=== PATIENT | male | born 1960 | race African-American/Black ===

== ENCOUNTER 2016-12-28 13:50 | Emergency (ER) | payer OTHER ==
[2016-12-28 13:58] VITALS: BP 121/63; PULSE 60; RESP 20; TEMP 97.3
--- NOTE | 2016-12-28 14:54 | ED ---
General Adult HPI - General Chief complaint: Urogenital Stated complaint: Testicular Pain Time Seen by Provider: 12/28/16 14:00 Source: patient, RN notes reviewed Mode of arrival: ambulatory Limitations: no limitations - History of Present Illness Initial comments: 56-year-old male presents emergency department chief complaint of right testicular pain. Patient states she's had this pain and swelling for the last 2 or 3 days. Patient states that he has not had any changes in urination. Patient denies any fever chills. Patient denies any changes in bowel or bladder habits. Patient states she was concerned due to his pain and discomforts without that he should be evaluated. Patient states he is not currently experiencing any other symptoms at this time. Patient denies any fever chills with this.Patient denies any recent fever, chills, shortness of breath, chest pain, back pain, abdominal pain, nausea vomiting, numbness or tingling, dysuria or hematuria, constipation or diarrhea, headaches or visual changes, or any other current symptoms. - Related Data Previous Rx's Medication Instructions Recorded Acetaminophen Tab [Tylenol Tab] 500 mg PO Q4H #30 tablet 03/05/16 Cephalexin [Keflex] 500 mg PO Q6HR #40 cap 03/05/16 Levofloxacin [Levaquin] 500 mg PO DAILY #7 tab 12/28/16 Allergies Allergy/AdvReac Type Severity Reaction Status Date / Time ibuprofen [From Motrin] Allergy Nausea & Verified 03/05/16 15:20 Vomiting Review of Systems ROS Statement: Those systems with pertinent positive or pertinent negative responses have been documented in the HPI. ROS Other: All systems not noted in ROS Statement are negative. Past Medical History Past Medical History: Chest Pain / Angina, Musculoskeletal Disorder Additional Past Medical History / Comment(s): back pain History of Any Multi-Drug Resistant Organisms: None Reported Past Surgical History: Orthopedic Surgery Additional Past Surgical History / Comment(s): L arm Past Anesthesia/Blood Transfusion Reactions: No Reported Reaction Past Psychological History: Depression Smoking Status: Current every day smoker Past Alcohol Use History: None Reported, Abuse Past Drug Use History: None Reported General Exam Limitations: no limitations General appearance: alert, in no apparent distress ENT exam: Present: normal exam, mucous membranes moist Neck exam: Present: normal inspection. Absent: tenderness, meningismus, lymphadenopathy Respiratory exam: Present: normal lung sounds bilaterally. Absent: respiratory distress, wheezes, rales, rhonchi, stridor Cardiovascular Exam: Present: regular rate, normal rhythm, normal heart sounds. Absent: systolic murmur, diastolic murmur, rubs, gallop, clicks exam: Present: testicular tenderness (Right testicle), scrotal swelling ( Right testicle), vertical testicular lie. Absent: urethral discharge Neurological exam: Present: alert, oriented X3 Psychiatric exam: Present: normal affect, normal mood Skin exam: Present: warm, dry, intact, normal color. Absent: rash Course Vital Signs 12/28/16 13:54 Temperature 97.3 F L Pulse Rate 60 Respiratory 20 Rate Blood Pressure 121/63 O2 Sat by Pulse 100 Oximetry Medical Decision Making - Medical Decision Making 56-year-old male presents emergency Department chief complaint of right testicular pain. At this time ultrasound shows suspicion for epididymitis. He treat patient with Levaquin at this time. We are pending STD cultures we discussed with the patient he denies any wrist. At this time QUESTIONS have been answered. He will be discharged home. - Lab Data Lab Results 12/28/16 Range/Units 15:16 Urine Color Yellow Urine Appearance Clear (Clear) Urine pH 7.0 (5.0-8.0) Ur Specific [place] 1.016 (1.001-1.035) Urine Protein Negative (Negative) Urine Glucose (UA) Negative (Negative) Urine Ketones Negative (Negative) Urine Blood Negative (Negative) Urine Nitrite Negative (Negative) Urine Bilirubin Negative (Negative) Urine Urobilinogen <2.0 (<2.0) mg/dL Ur Leukocyte Esterase Small H (Negative) Urine RBC 1 (0-5) /hpf Urine WBC 10 H (0-5) /hpf Ur Squamous Epith Cells <1 (0-4) /hpf Urine Bacteria Occasional H (None) /hpf Urine Mucus Rare H (None) /hpf - Radiology Data Radiology results: report reviewed, image reviewed Disposition Clinical Impression: Epididymitis Disposition: HOME SELF-CARE Condition: Stable Instructions: Epididymitis (ED) Additional Instructions: Please use medication as discussed. Please follow up with family doctor if symptoms have not improved over the next two days. Please return to the emergency room if your symptoms increase or worsen or for any other concerns. Prescriptions: Levofloxacin [Levaquin] 500 mg PO DAILY #7 tab Referrals: Caty Waldrop MD [Primary Care Provider] - 1-2 days Gigi Chandler MD [STAFF PHYSICIAN] - 1-2 days Time of Disposition: 15:38
--- NOTE | 2016-12-28 15:07 | US ---
EXAMINATION TYPE: US scrotum with doppler. Grayscale and color Doppler Duplex imaging performed of alcides metzger scrotum. DATE OF EXAM: 12/28/2016 COMPARISON: NONE CLINICAL HISTORY: Pain. Right testicle swelling EXAM MEASUREMENTS: TESTICLES: Right Testicle: 4.3 x 2.0 x 3.0 cm Left Testicle: 3.8 x 2.0 x 2.6 cm EPIDIDYMIS HEAD: Right Epididymis: 1.8 cm Left Epididymis: 1.0 cm Doppler performed to assess for testicular vascularity; good bilateral color flow and waveforms are s een. There is no evidence of testicular torsion. Presence of hydroceles: on right measuring 2.3 x 1.3 x 1.7cm Presence of varicoceles: no Small bilateral testicular cysts right measuring 0.3 x 0.2x 0.2cm, left measuring 0.2 x 0.2 x 0.2cm . Excessive echogenic foci suggestive of microcalcifications seen bilaterally. Right epididymis appears enlarged and hypervascular suggestive of epididymitis. IMPRESSION: Findings suggest epididymitis. Testicular microlithiasis. Bilateral testicular cysts are suspected. No evident testicular torsion. Follow-up suggested.
[2016-12-28 15:38] LABS: Appearance,Urine Clear (Clear); Bacteria,Urine Occasional /hpf; Bilirubin,Urine Negative (Negative); Glucose,Urine (UA) Negative (Negative); Ketones,Urine Negative (Negative); Leukocyte Esterase,Urine Small (Negative); Mucus,Urine Rare /hpf; Nitrite,Urine Negative (Negative); Particle Count 697; Protein,Urine Negative (Negative); RBC,Urine 1 /hpf (0-5); Specific Gravity,Urine 1.016 (1.001-1.035); Squamous Epithelial Cell,Urine <1 /hpf (0-4); UA Billing (MACRO vs. MICRO) MICRO; Urobilinogen,Urine <2.0 mg/dL (<2.0); WBC,Urine 10 /hpf (0-5)
[2016-12-28] MEDS ORDERED: ACETAMINOPHEN TAB 500 MG TAB PO STA (15:45)
== END 2016-12-28 15:55 | disposition home or self-care (01) ==
LOC: EC 13:50
DX: N45.1 Epididymitis (principal); F17.200 Nicotine dependence, unspecified, uncomplicated; Z88.6 Allergy status to analgesic agent
CPT/HCPCS: 76870; 81001; 87086; 87491; 87591; 93975; 99284

== ENCOUNTER 2017-06-03 15:11 | Emergency (ER) | payer OTHER ==
[2017-06-03 15:17] VITALS: BP 134/68; PULSE 66; RESP 16; TEMP 97.8
[2017-06-03] MEDS ORDERED: DIPH,PERTUS(ACELL)TETVAC-LF 0.5 ML VIAL IM ONE (15:35)
[2017-06-03] MEDS ORDERED: CIPROFLOXACIN HCL 500 MG TAB PO STA (15:36)
[2017-06-03] MEDS ORDERED: ACETAMINOPHEN TAB 500 MG TAB PO STA (15:42)
--- NOTE | 2017-06-03 15:50 | ED ---
Lower Extremity Injury HPI - General Chief Complaint: Extremity Injury, Lower Stated Complaint: Stepped on nail Time Seen by Provider: 06/03/17 15:32 Source: patient Mode of arrival: ambulatory Limitations: no limitations - History of Present Illness Initial Comments: Patient is a 56-year-old male presenting to the emergency department with chief complaint of puncture wound to the plantar aspect of his left forefoot. Patient states he was walking and stepped on a nail at approximately 3 PM yesterday. Patient states she applied rubbing alcohol to the wound right after the injury. Patient is currently complaining of a dull pain to his left foot rated 6 out of 10 exacerbated when walking. No treatment prior to arrival. Patient denies recent illness, chills, fevers, nausea, vomiting, shortness of breath, chest pain, abdominal pain. Patient denies any numbness or tingling. 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 - Related Data Previous Rx's Medication Instructions Recorded Acetaminophen Tab [Tylenol Tab] 500 mg PO Q4H #30 tablet 03/05/16 Cephalexin [Keflex] 500 mg PO Q6HR #40 cap 03/05/16 Levofloxacin [Levaquin] 500 mg PO DAILY #7 tab 12/28/16 Ciprofloxacin HCl [Cipro] 500 mg PO Q12HR #19 tablet 06/03/17 Allergies Allergy/AdvReac Type Severity Reaction Status Date / Time ibuprofen [From Motrin] Allergy Nausea & Verified 06/03/17 15:17 Vomiting Review of Systems ROS Statement: Those systems with pertinent positive or pertinent negative responses have been documented in the HPI. ROS Other: All systems not noted in ROS Statement are negative. Past Medical History Past Medical History: Chest Pain / Angina, Musculoskeletal Disorder Additional Past Medical History / Comment(s): back pain History of Any Multi-Drug Resistant Organisms: None Reported Past Surgical History: Orthopedic Surgery Additional Past Surgical History / Comment(s): L arm Past Anesthesia/Blood Transfusion Reactions: No Reported Reaction Past Psychological History: Depression Smoking Status: Current every day smoker Past Alcohol Use History: None Reported, Abuse Past Drug Use History: None Reported General Exam - General Exam Comments Initial Comments: GENERAL: Pt awake and alert, well-appearing, well-nourished, and in no acute distress. HEAD: Atraumatic, normocephalic. EYES: Pupils equal, round, sclera anicteric, conjunctiva are normal. ENT: Moist mucous membranes. NECK:Normal range of motion, supple without lymphadenopathy or JVD. LUNGS: Breath sounds clear to auscultation bilaterally. No wheezes, rales, or rhonchi. HEART: Heart S1, S2, no S3 or S4. Regular rate and rhythm. No murmurs, rubs or gallops. ABDOMEN: Soft, nontender, nondistended, normoactive bowel sounds. No guarding, no rebound. No masses or organomegaly appreciated. MUSCULOSKELETAL: Normal ROM. Strength 5/5. EXTREMITIES: 2+ peripheral pulses. No edema or cyanosis. Tenderness to left plantar forefoot with palpation. No obvious erythema or drainage noted. NEUROLOGICAL: Pt oriented x 3. Cranial nerves II through XII grossly intact. Strength and sensation grossly intact. PSYCH: Normal mood, normal affect. SKIN: Warm, dry, intact. Normal turgor. No rashes or lesions. Limitations: no limitations Course Vital Signs 06/03/17 15:12 Temperature 97.8 F Pulse Rate 66 Respiratory 16 Rate Blood Pressure 134/68 O2 Sat by Pulse 98 Oximetry Medical Decision Making - Medical Decision Making Puncture wound to left foot. No evidence of cellulitis. Left foot x-ray negative for fracture dislocation or foreign body. Patient placed on Cipro 500 mg twice a day 10 days. Patient instructed to soak left foot in warm water 3- 4 times daily. Patient started to follow-up with primary care physician or return to the emergency department if symptoms do not improve or get worse. Patient agrees with treatment plan. Discharge instructions and return parameters reviewed. - Radiology Data Radiology results: report reviewed X-ray left foot: No fracture or dislocation. Metatarsals are intact. No sign or foreign body. As read by Dr. Hare. Disposition Clinical Impression: Puncture wound of foot without foreign body Disposition: HOME SELF-CARE Condition: Good Instructions: Puncture Wound (ED) Additional Instructions: Finish antibiotics as prescribed. Avoid weightbearing while painful. Elevate and soak wound in warm water. Follow-up with primary care physician within 48 hours. Continue Tylenol for pain every 4-6 hours as needed. Please return to the emergency department with increased cellulitis or red streaks going up your foot and leg, increased pain, fevers or any other concerning symptoms. Prescriptions: Ciprofloxacin HCl [Cipro] 500 mg PO Q12HR #19 tablet Referrals: Caty Waldrop MD [Primary Care Provider] - 1-2 days Time of Disposition: 16:00
--- NOTE | 2017-06-03 15:50 | XR ---
EXAMINATION TYPE: XR foot complete LT DATE OF EXAM: 06/03/2017 COMPARISON: NONE HISTORY: Pain TECHNIQUE: 3 views FINDINGS: I see no fracture nor dislocation. Metatarsals are intact. There is no sign of a foreign daylin dy. IMPRESSION: Negative left foot exam.
== END 2017-06-03 16:07 | disposition home or self-care (01) ==
LOC: EC 15:11
DX: S91.332A Puncture wound without foreign body, left foot, initial encounter (principal); F17.200 Nicotine dependence, unspecified, uncomplicated; Z88.6 Allergy status to analgesic agent; Z23 Encounter for immunization; W45.0XXA Nail entering through skin, initial encounter; Y93.01 Activity, walking, marching and hiking; Y92.89 Other specified places as the place of occurrence of the external cause
CPT/HCPCS: 90471; 90715; 99283

== ENCOUNTER 2019-02-16 13:45 | Emergency (ER) | payer OTHER ==
[2019-02-16] MEDS ORDERED: DIPH,PERTUS(ACELL)TETVAC-LF 0.5 ML VIAL IM ONE (14:31)
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
[2019-02-16 15:30] VITALS: BP 127/78; PULSE 49; RESP 18; TEMP 97.7
== END 2019-02-16 15:29 | disposition home or self-care (01) ==
LOC: EC 13:45
DX: S40.212A Abrasion of left shoulder, initial encounter (principal); Z23 Encounter for immunization; F17.200 Nicotine dependence, unspecified, uncomplicated; Z88.6 Allergy status to analgesic agent; Y04.0XXA Assault by unarmed brawl or fight, initial encounter
CPT/HCPCS: 90471; 90715; 99283

== ENCOUNTER 2019-04-11 06:14 | Emergency (ER) | payer OTHER ==
[2019-04-11 06:30] VITALS: RESP 18; TEMP 97.7
[2019-04-11] MEDS ORDERED: HYDROcodone/APAP 5-325MG 1 EACH TAB PO STA (06:52)
[2019-04-11] MEDS ORDERED: KETOROLAC 30 MG/ML 1 ML VIAL IM STA (06:52)
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
--- NOTE | 2019-04-11 07:13 | XR ---
EXAMINATION TYPE: XR wrist complete RT DATE OF EXAM: 04/11/2019 CLINICAL HISTORY: pain TECHNIQUE: Frontal, lateral and oblique images of the right wrist are obtained. Scaphoid views also submitted. COMPARISON: None. FINDINGS: There is no acute fracture/dislocation evident. There is widening of the scapholunate space measuring 6. 5 mm felt to reflect scapholunate ligamentous tear. Severe narrowing radiocarpal joint space. IMPRESSION: There is no acute fracture or dislocation seen. Suspect scapholunate ligamentous tear. ICD 10 NO FRACTURE, INITIAL EVALUATION
--- NOTE | 2019-04-11 07:14 | XR ---
EXAMINATION TYPE: XR tibia fibula RT DATE OF EXAM: 04/11/2019 CLINICAL HISTORY: pain TECHNIQUE: AP and lateral images of the right tibia and fibula are obtained. COMPARISON: None. FINDINGS: There is no acute fracture/dislocation evident. The joint spaces appear within normal fletcher its. The overlying soft tissue appears unremarkable. IMPRESSION: There is no acute fracture or dislocation seen. ICD 10 NO FRACTURE, INITIAL EVALUATION
[2019-04-11 08:09] VITALS: BP 120/72; PULSE 45
== END 2019-04-11 08:03 | disposition home or self-care (01) ==
LOC: EC 06:14
DX: S63.8X1A Sprain of other part of right wrist and hand, initial encounter (principal); S50.312A Abrasion of left elbow, initial encounter; S80.812A Abrasion, left lower leg, initial encounter; F17.200 Nicotine dependence, unspecified, uncomplicated; Z88.6 Allergy status to analgesic agent; Z98.890 Other specified postprocedural states; V13.4XXA Pedal cycle driver injured in collision with car, pick-up truck or van in traffic accident, initial encounter; Y93.55 Activity, bike riding; Y92.410 Unspecified street and highway as the place of occurrence of the external cause
CPT/HCPCS: 73110; 73590; 99284; 29125; 96372; J1885

== ENCOUNTER → 2019-04-12 | Outpatient (CLI) | payer OTHER ==
--- NOTE | 2019-04-12 14:21 | XR ---
Chest x-ray with left RIBS HISTORY: Trauma and pain Frontal view the chest and 4 views of the left ribs submitted and compared to prior chest x-ray dated 04/13/2013 There is no pneumothorax or pleural effusion. Cardiac mediastinal silhouette, pulmonary vascularity a nd blas within normal limits. Aorta is dense. Pulmonary vascularity and blas are stable. No displaced rib fracture. IMPRESSION: No acute cardiopulmonary disease. Bone scan could be performed for increased sensitivity to assess for x-ray as indicated.
--- NOTE | 2019-04-12 14:21 | US ---
EXAMINATION TYPE: US venous doppler duplex LE RT DATE OF EXAM: 04/12/2019 1:50 PM COMPARISON: NONE CLINICAL HISTORY: M79.602 Pain in R leg, Z91.81 Status post fall. SIDE PERFORMED: Right TECHNIQUE: The lower extremity deep venous system is examined utilizing real time linear array sonog tiffani with graded compression, doppler sonography and color-flow sonography. VESSELS IMAGED: Common Femoral Vein Deep Femoral Vein Greater Saphenous Vein * Femoral Vein Popliteal Vein Small Saphenous Vein * Proximal Calf Veins (* superficial vessels) Right Leg: Negative for DVT. Right groin lymph node is seen = 2.4 x 1.6 x 0.7cm. IMPRESSION: 1. Right lower extremity negative for deep venous thrombosis. 2. Right inguinal lymph node
--- NOTE | 2019-04-12 14:23 | XR ---
Lumbosacral spine HISTORY: Trauma and pain 5 views of lumbosacral spine correlated to prior exam 05/18/2011 Lumbar vertebral bodies show preserved height, alignment, and bone mineralization. There is no eviden t spondylolysis or spondylolisthesis. Sclerosis present in the posterior elements is compatible with facet arthropathy. There is multilevel spondylosis. Loss of disc height at intervertebral levels is c ompatible with disc desiccation and degenerative disc disease. IMPRESSION: No acute fracture or subluxation. Degenerative disc disease and facet arthropathy. Follow -up as indicated.
== END | disposition home or self-care (01) ==
LOC: RADUSWWP 13:13
PROVIDERS: ATTEND Family Medicine
DX: M79.604 Pain in right leg (principal); R07.81 Pleurodynia; M51.36 Other intervertebral disc degeneration, lumbar region; M46.96 Unspecified inflammatory spondylopathy, lumbar region; Z91.81 History of falling
CPT/HCPCS: 72110

== ENCOUNTER 2019-04-22 09:51 | Emergency (ER) | payer OTHER ==
[2019-04-22 10:03] VITALS: BP 117/73; PULSE 46; RESP 20; TEMP 97.4
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
[2019-04-22] MEDS ORDERED: ORPHENADRINE 30 MG/ML 2 ML VIAL IM STA (11:11)
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
== END 2019-04-22 11:56 | disposition home or self-care (01) ==
LOC: EC 09:51
DX: M62.838 Other muscle spasm (principal); M50.322 Other cervical disc degeneration at C5-C6 level; R51 Headache; M48.02 Spinal stenosis, cervical region; I20.9 Angina pectoris, unspecified; F17.200 Nicotine dependence, unspecified, uncomplicated; Z98.890 Other specified postprocedural states; Z88.6 Allergy status to analgesic agent; V13.4XXD Pedal cycle driver injured in collision with car, pick-up truck or van in traffic accident, subsequent encounter
CPT/HCPCS: 72125; 70450; 99284; 96372; J2360

== ENCOUNTER → 2019-04-24 | Outpatient (CLI) | payer OTHER ==
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
== END | disposition home or self-care (01) ==
LOC: RADXRMAIN 15:39
PROVIDERS: ATTEND Family Medicine
DX: S62.101A Fracture of unspecified carpal bone, right wrist, initial encounter for closed fracture (principal); M89.8X8 Other specified disorders of bone, other site; M77.8 Other enthesopathies, not elsewhere classified; X58.XXXA Exposure to other specified factors, initial encounter

== ENCOUNTER → 2019-05-08 | Outpatient (CLI) | payer OTHER ==
--- NOTE | 2019-05-08 09:43 | MR ---
EXAMINATION TYPE: MR lumbar spine wo con DATE OF EXAM: 05/08/2019 COMPARISON: Plain film 04/12/2019 HISTORY: Lumbago with sciatica, bilateral TECHNIQUE: Multiplanar, multisequence images of the lumbar spine were acquired. L1-L2: Posterior broad-based disc bulge causes minimal anterior mass effect on the thecal sac. No sig nificant foraminal encroachment or central stenosis. L2-L3: No central stenosis or foraminal encroachment. No evident disc herniation. L3-L4: Facet arthropathy is present. There is hypertrophy ligamentum flavum. No evident spinal stenos is. Circumferential extension of endplate disc complex causes some mild left-sided foraminal encroach ment. No disc herniation. L4-L5: Posterior broad-based disc bulge causes slight anterior mass effect on the thecal sac. There i s facet arthropathy change. No central stenosis or foraminal encroachment. L5-S1: Minimal posterior disc bulge contacts the anterior mass effect on the thecal sac. No significa nt central stenosis. No foraminal encroachment. Increased signal at the posterior aspect of the disc is likely procurement representative of annular tear. There is facet arthropathy change. Lumbar segments are intact. No paraspinal masses are identified. Conus medullaris has a normal appe arance. There is mild spinal curvature. Suspect possible marrow reconversion, correlate for anemia. M ultilevel spondylosis with endplate discogenic marrow signal change is noted. Lumbar vertebral bodies show preserved height. Some loss of disc signal is compatible with disc desiccation, there is associ ated loss of disc height greatest at L1-2. Multiple T2 intense foci within the kidneys likely represe nting cortical cysts. IMPRESSION: Degenerative disc disease, facet arthropathy, mild spinal curvature. Correlate for possible anemia.
== END | disposition home or self-care (01) ==
LOC: RADMRIMAIN 08:13
PROVIDERS: ATTEND Nurse Practitioner Family
DX: M51.36 Other intervertebral disc degeneration, lumbar region (principal); M46.96 Unspecified inflammatory spondylopathy, lumbar region; M43.9 Deforming dorsopathy, unspecified
CPT/HCPCS: 72148

== ENCOUNTER → 2019-06-01 | Outpatient (CLI) | payer OTHER ==
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
== END | disposition home or self-care (01) ==
LOC: RADMRIMAIN 13:51
PROVIDERS: ATTEND Internal Medicine Geriatric Medicine
DX: M50.122 Cervical disc disorder at C5-C6 level with radiculopathy (principal); M50.223 Other cervical disc displacement at C6-C7 level; V19 Pedal cycle rider injured in other and unspecified transport accidents
CPT/HCPCS: 72141

== ENCOUNTER 2019-12-23 09:08 | Emergency (ER) | payer OTHER ==
[2019-12-23 09:16] VITALS: PULSE 53; RESP 18
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
[2019-12-23 09:34] VITALS: BP 124/78; TEMP 98.3
--- NOTE | 2019-12-23 09:51 | XR ---
EXAMINATION TYPE: XR ribs RT w pa chest xray DATE OF EXAM: 12/23/2019 COMPARISON: NONE TECHNIQUE: PA view of the chest and 4 views of the right ribs are submitted submitted. HISTORY: pain FINDINGS: The lungs are clear and there is no pneumothorax, pleural effusion, or focal pneumonia. There is a subtle deformity involving the posterior lateral right ninth rib. IMPRESSION: 1. Subtle deformity involving the posterior lateral right ninth rib. This could be chronic correlate with point tenderness to exclude hairline nondisplaced fracture.
[2019-12-23] MEDS ORDERED: LIDOCAINE 5% PATCH TOPICAL STA (10:28)
[2019-12-23] MEDS ORDERED: valACYclovir 500 MG TAB PO STA (11:46)
[2019-12-23] MEDS ORDERED: valACYclovir HCL 1,000 MG TABLET PO STA ×2 (11:49→12:09)
[2019-12-23] MEDS ORDERED: ACET/COD 300 MG/30 MG STARTER PACK 6 TAB BTL PO STA (11:59)
== END 2019-12-23 12:16 | disposition home or self-care (01) ==
LOC: EC 09:08
DX: S22.31XA Fracture of one rib, right side, initial encounter for closed fracture (principal); B02.9 Zoster without complications; S01.511A Laceration without foreign body of lip, initial encounter; F17.200 Nicotine dependence, unspecified, uncomplicated; Z88.6 Allergy status to analgesic agent; W50.0XXA Accidental hit or strike by another person, initial encounter
CPT/HCPCS: 99284

== ENCOUNTER 2020-07-06 12:07 | Emergency (ER) | payer OTHER ==
[2020-07-06 12:22] VITALS: RESP 18
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
[2020-07-06 13:35] VITALS: BP 120/71; PULSE 58; TEMP 97.9
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
[2020-07-06] MEDS ORDERED: ASPIRIN-ACET-CAFF 250-250-65MG 1 EACH TAB PO STA (13:44)
== END 2020-07-06 14:00 | disposition home or self-care (01) ==
LOC: EC 12:07
DX: S09.90XA Unspecified injury of head, initial encounter (principal); R51.9 Headache, unspecified; Z88.6 Allergy status to analgesic agent; V89.0XXA Person injured in unspecified motor-vehicle accident, nontraffic, initial encounter; Y92.410 Unspecified street and highway as the place of occurrence of the external cause
CPT/HCPCS: 70450; 72125; 99284

== ENCOUNTER 2021-07-01 00:35 | Emergency (ER) | payer OTHER ==
[2021-07-01 00:50] VITALS: RESP 16
[2021-07-01] MEDS ORDERED: CALCIUM CHLORIDE 100 MG/ML 10 ML SYRINGE IVP STA (00:50)
[2021-07-01] MEDS ORDERED: SODIUM CHLORIDE 0.9% 1,000 ML IV STA (00:50)
--- NOTE | 2021-07-01 00:57 | ED ---
Arrhythmia/Palpitations HPI - General Chief Complaint: Arrhythmia/Palpitations Stated Complaint: Syncope Time Seen by Provider: 07/01/21 00:38 Source: patient, police, EMS, RN notes reviewed, old records reviewed Mode of arrival: EMS Limitations: no limitations - History of Present Illness Initial Comments: This is a 60-year-old male to the emergency room today. Patient presents today patient does reiterate that he has always had a little heart rate is unable to get about 60 for evaluation regards to sinus bradycardia significant bradycardia here in the emergency department. Patient also had a severe syncopal event recently placed on psychiatric medication. MD Complaint: "skipped beats", palpitations -: hour(s) Context: occurred during rest Arrhythmia History: other (bradycardia) Associated Symptoms: syncope Treatments Prior to Arrival: other (none, new antipsychotic medications) - Related Data Previous Rx's Medication Instructions Recorded valACYclovir HCL [Valacyclovir] 1,000 mg PO Q8HR 7 Days #21 tab 12/23/19 Allergies Allergy/AdvReac Type Severity Reaction Status Date / Time ibuprofen [From Motrin] Allergy Nausea & Verified 07/06/20 12:21 Vomiting Review of Systems ROS Statement: Those systems with pertinent positive or pertinent negative responses have been documented in the HPI. ROS Other: All systems not noted in ROS Statement are negative. Past Medical History Past Medical History: Chest Pain / Angina, Musculoskeletal Disorder Additional Past Medical History / Comment(s): back pain History of Any Multi-Drug Resistant Organisms: MRSA Date of last positivie culture/infection: 2019 MDRO Source:: flank Past Surgical History: Orthopedic Surgery Additional Past Surgical History / Comment(s): L arm, right hand Past Anesthesia/Blood Transfusion Reactions: No Reported Reaction Past Psychological History: Depression Smoking Status: Current every day smoker Past Alcohol Use History: Abuse, Occasional Past Drug Use History: Cocaine General Exam Limitations: no limitations Course Vital Signs 07/01/21 07/01/21 07/01/21 00:38 00:58 01:37 Temperature 97.0 F L Pulse Rate 38 L 53 L 45 L Respiratory 16 16 16 Rate Blood Pressure 128/100 128/85 125/73 O2 Sat by Pulse 100 100 Oximetry - Reevaluation(s) Reevaluation #1: 07/01/21 02:21 Record is reviewed Reevaluation #2: 07/01/21 02:21 States that he currently always has a low heart rate Reevaluation #3: 07/01/21 02:21 Patient is no recurrent syncope here in the emergency department 07/01/21 02:21 at This time patient denies any significant complaints EKG Findings - EKG Comments: EKG Findings:: EKG is marked sinus bradycardia 40 by mouth 176 QRS 84 QTc 387 Medical Decision Making - Medical Decision Making 60 male to the emergency room today. Patient presents today for evaluation regards to episode of syncope. Patient recently started on new antipsychotic medications. Shortly after taking medications tonight he did pass out a shower. He has been a symptomatically felt ER stay mildly bradycardic but he states his heart is always low. Lab values are normal patient can be discharged home - Lab Data Result diagrams: 07/01/21 00:56 07/01/21 00:56 Lab Results 07/01/21 07/01/21 07/01/21 Range/Units 00:56 00:56 00:56 WBC 5.8 (3.8-10.6) k/uL RBC 4.12 L (4.30-5.90) m/uL Hgb 12.8 L (13.0-17.5) gm/dL Hct 40.1 (39.0-53.0) % MCV 97.4 (80.0-100.0) fL MCH 31.1 (25.0-35.0) pg MCHC 32.0 (31.0-37.0) g/dL RDW 11.5 (11.5-15.5) % Plt Count 122 L (150-450) k/uL MPV 8.3 Neutrophils % 60 % Lymphocytes % 29 % Monocytes % 7 % Eosinophils % 1 % Basophils % 0 % Neutrophils # 3.5 (1.3-7.7) k/uL Lymphocytes # 1.7 (1.0-4.8) k/uL Monocytes # 0.4 (0-1.0) k/uL Eosinophils # 0.1 (0-0.7) k/uL Basophils # 0.0 (0-0.2) k/uL PT 12.2 H (9.0-12.0) sec INR 1.2 H (<1.2) APTT 23.1 (22.0-30.0) sec D-Dimer <0.17 (<0.60) mg/L FEU Sodium 139 (137-145) mmol/L Potassium 4.3 (3.5-5.1) mmol/L Chloride 105 (98-107) mmol/L Carbon Dioxide 28 (22-30) mmol/L Anion Gap 6 mmol/L BUN 17 (9-20) mg/dL Creatinine 1.01 (0.66-1.25) mg/dL Est GFR (CKD-EPI)AfAm >90 (>60 ml/min/1.73 sqM) Est GFR (CKD-EPI)NonAf 81 (>60 ml/min/1.73 sqM) Glucose 113 H (74-99) mg/dL Plasma Lactic Acid Steve (0.7-2.0) mmol/L Calcium 9.1 (8.4-10.2) mg/dL Phosphorus 4.2 (2.5-4.5) mg/dL Magnesium 2.1 (1.6-2.3) mg/dL Total Bilirubin 0.4 (0.2-1.3) mg/dL AST 29 (17-59) U/L ALT 28 (4-49) U/L Alkaline Phosphatase 79 (38-126) U/L Troponin I (0.000-0.034) ng/mL Total Protein 6.9 (6.3-8.2) g/dL Albumin 4.0 (3.5-5.0) g/dL TSH 3.180 (0.465-4.680) mIU/L Serum Alcohol <10 mg/dL 07/01/21 07/01/21 Range/Units 00:56 00:56 WBC (3.8-10.6) k/uL RBC (4.30-5.90) m/uL Hgb (13.0-17.5) gm/dL Hct (39.0-53.0) % MCV (80.0-100.0) fL MCH (25.0-35.0) pg MCHC (31.0-37.0) g/dL RDW (11.5-15.5) % Plt Count (150-450) k/uL MPV Neutrophils % % Lymphocytes % % Monocytes % % Eosinophils % % Basophils % % Neutrophils # (1.3-7.7) k/uL Lymphocytes # (1.0-4.8) k/uL Monocytes # (0-1.0) k/uL Eosinophils # (0-0.7) k/uL Basophils # (0-0.2) k/uL PT (9.0-12.0) sec INR (<1.2) APTT (22.0-30.0) sec D-Dimer (<0.60) mg/L FEU Sodium (137-145) mmol/L Potassium (3.5-5.1) mmol/L Chloride (98-107) mmol/L Carbon Dioxide (22-30) mmol/L Anion Gap mmol/L BUN (9-20) mg/dL Creatinine (0.66-1.25) mg/dL Est GFR (CKD-EPI)AfAm (>60 ml/min/1.73 sqM) Est GFR (CKD-EPI)NonAf (>60 ml/min/1.73 sqM) Glucose (74-99) mg/dL Plasma Lactic Acid Steve 0.9 (0.7-2.0) mmol/L Calcium (8.4-10.2) mg/dL Phosphorus (2.5-4.5) mg/dL Magnesium (1.6-2.3) mg/dL Total Bilirubin (0.2-1.3) mg/dL AST (17-59) U/L ALT (4-49) U/L Alkaline Phosphatase (38-126) U/L Troponin I <0.012 (0.000-0.034) ng/mL Total Protein (6.3-8.2) g/dL Albumin (3.5-5.0) g/dL TSH (0.465-4.680) mIU/L Serum Alcohol mg/dL Disposition Clinical Impression: Syncope, Sinus bradycardia Disposition: HOME SELF-CARE Condition: Good Instructions (If sedation given, give patient instructions): Syncope (ED) Is patient prescribed a controlled substance at d/c from ED?: No Referrals: Caty Waldrop MD [Primary Care Provider] - 1-2 days
[2021-07-01 01:40] LABS: ALT 28 U/L (4-49); AST 29 U/L (17-59); African American GFR (CKD) >90 (>60 ml/min/1.73 sqM); Alcohol <10 mg/dL; Alkaline Phosphatase 79 U/L (38-126); Anion Gap 6 mmol/L; Blood Urea Nitrogen 17 mg/dL (9-20); Calcium 9.1 mg/dL (8.4-10.2); Carbon Dioxide 28 mmol/L (22-30); Chloride 105 mmol/L (98-107); Glucose 113 mg/dL (74-99); Magnesium 2.1 mg/dL (1.6-2.3); Non-African American GFR(CKD) 81 (>60 ml/min/1.73 sqM); Phosphorus 4.2 mg/dL (2.5-4.5); Potassium 4.3 mmol/L (3.5-5.1); Sodium 139 mmol/L (137-145); Total Bilirubin 0.4 mg/dL (0.2-1.3); Total Protein 6.9 g/dL (6.3-8.2)
[2021-07-01 01:41] LABS: Basophils % (A) 0 %; Eosinophils # (A) 0.1 k/uL (0-0.7); Eosinophils % (A) 1 %; HCT 40.1 % (39.0-53.0); HGB 12.8 gm/dL (13.0-17.5); INR 1.2 (<1.2); Lymphocytes # (A) 1.7 k/uL (1.0-4.8); Lymphocytes % (A) 29 %; MCH 31.1 pg (25.0-35.0); MCV 97.4 fL (80.0-100.0); Mean Platelet Volume 8.3; Monocytes # (A) 0.4 k/uL (0-1.0); Monocytes % (A) 7 %; Neutrophils # (A) 3.5 k/uL (1.3-7.7); Neutrophils % (A) 60 %; Partial Thromboplastin Time 23.1 sec (22.0-30.0); Platelet Count 122 k/uL (150-450); Prothrombin Time 12.2 sec (9.0-12.0); RBC 4.12 m/uL (4.30-5.90); RDW 11.5 % (11.5-15.5); WBC 5.8 k/uL (3.8-10.6)
[2021-07-01] MEDS ORDERED: ACETAMINOPHEN TAB 500 MG TAB PO STA (02:21)
[2021-07-01 02:39] VITALS: BP 107/73; PULSE 64; TEMP 97
== END 2021-07-01 03:03 | disposition home or self-care (01) ==
LOC: EC 00:35
DX: R55 Syncope and collapse (principal); R00.1 Bradycardia, unspecified; F17.200 Nicotine dependence, unspecified, uncomplicated; Z88.6 Allergy status to analgesic agent
CPT/HCPCS: 36415; 93005; 85379; 83880; 80053; 83605; 83735; 84100; 84443; 84484; 85025; 85610; 85730; 99285; 96374; 96361; G0480; 80320

== ENCOUNTER 2022-02-16 10:22 | Emergency (ER) | payer MEDICARE, OTHER ==
[2022-02-16 10:33] VITALS: BP 132/84; PULSE 54; RESP 15; TEMP 97.5
[2022-02-16] MEDS: HYDROmorphone 1 MG/ML 1 ML SYRINGE IVP STA ×2 (11:27→11:32)
--- NOTE | 2022-02-16 11:28 | ED ---
Fall HPI - General Chief Complaint: Fall Stated Complaint: Fall Time Seen by Provider: 02/16/22 10:36 Source: patient, EMS Mode of arrival: EMS - History of Present Illness Initial Comments: 7-year-old male who states he was outside when he was coughing in the stood up and passed out striking the back of his head. He is out he states for about 2 minutes he had an episode like this 2 or 3 weeks ago which she was seen at [facility] for. He complains of head neck pain no blurry vision no trouble with hearing no loss of function to his upper or lower extremities. No other complaints or modifying factors MD Complaint: fall - Related Data Previous Rx's Medication Instructions Recorded valACYclovir HCL [Valacyclovir] 1,000 mg PO Q8HR 7 Days #21 tab 12/23/19 Allergies Allergy/AdvReac Type Severity Reaction Status Date / Time ibuprofen [From Motrin] Allergy Nausea & Verified 07/06/20 12:21 Vomiting Review of Systems ROS Statement: Those systems with pertinent positive or pertinent negative responses have been documented in the HPI. ROS Other: All systems not noted in ROS Statement are negative. Past Medical History Past Medical History: Chest Pain / Angina, Musculoskeletal Disorder Additional Past Medical History / Comment(s): back pain History of Any Multi-Drug Resistant Organisms: MRSA Date of last positivie culture/infection: 2019 MDRO Source:: flank Past Surgical History: Orthopedic Surgery Additional Past Surgical History / Comment(s): L arm, right hand Past Anesthesia/Blood Transfusion Reactions: No Reported Reaction Past Psychological History: Depression Smoking Status: Current every day smoker Past Alcohol Use History: Abuse, Occasional Past Drug Use History: Cocaine General Exam - General Exam Comments Initial Comments: This is a well-developed well-nourished awake alert oriented 5 male with a Richard Coma Scale of 15 Limitations: no limitations General appearance: alert, in no apparent distress Head exam: Present: normocephalic, normal inspection, other (Some tenderness palpation of the occipital scalp and over the upper paraspinous neck musculature no spinous process tenderness. No open wound seen no bruising.) Eye exam: Present: normal appearance, PERRL, EOMI. Absent: scleral icterus, conjunctival injection, periorbital swelling ENT exam: Present: normal exam, mucous membranes moist Neck exam: Present: normal inspection, tenderness (As noted above), full ROM, other (No stridor JVD or bruits). Absent: meningismus, lymphadenopathy Respiratory exam: Present: normal lung sounds bilaterally. Absent: respiratory distress, wheezes, rales, rhonchi, stridor Cardiovascular Exam: Present: bradycardia, normal heart sounds. Absent: systolic murmur, diastolic murmur, rubs, gallop, clicks GI/Abdominal exam: Present: soft, normal bowel sounds. Absent: distended, tenderness, guarding, rebound, rigid Extremities exam: Present: normal inspection, full ROM, normal capillary refill. Absent: tenderness, pedal edema, joint swelling, calf tenderness Back exam: Present: normal inspection Neurological exam: Present: alert, oriented X3, CN II-XII intact Psychiatric exam: Present: normal affect, normal mood Skin exam: Present: warm, dry, intact, normal color. Absent: rash Course Vital Signs 02/16/22 10:25 Temperature 97.5 F L Pulse Rate 54 L Respiratory 15 Rate Blood Pressure 132/84 O2 Sat by Pulse 99 Oximetry Medical Decision Making - Medical Decision Making I did review the case with the patient did review the materials from [facility]. I did discuss the findings with the patient he was offered admission he at this time would decline and will follow-up with his provider as planned tomorrow return when necessary. - Lab Data Result diagrams: 02/16/22 11:08 02/16/22 11:08 Lab Results 02/16/22 02/16/22 02/16/22 Range/Units 11:08 11:08 11:08 WBC 8.5 (3.8-10.6) k/uL RBC 4.11 L (4.30-5.90) m/uL Hgb 13.3 (13.0-17.5) gm/dL Hct 40.4 (39.0-53.0) % MCV 98.2 (80.0-100.0) fL MCH 32.3 (25.0-35.0) pg MCHC 32.9 (31.0-37.0) g/dL RDW 12.7 (11.5-15.5) % Plt Count 169 (150-450) k/uL MPV 8.4 Neutrophils % 62 % Lymphocytes % 25 % Monocytes % 8 % Eosinophils % 3 % Basophils % 1 % Neutrophils # 5.2 (1.3-7.7) k/uL Lymphocytes # 2.1 (1.0-4.8) k/uL Monocytes # 0.7 (0-1.0) k/uL Eosinophils # 0.3 (0-0.7) k/uL Basophils # 0.1 (0-0.2) k/uL PT 11.3 (9.0-12.0) sec INR 1.1 (<1.2) APTT 24.8 (22.0-30.0) sec D-Dimer 1.29 H (<0.60) mg/L FEU Sodium 137 (137-145) mmol/L Potassium 4.6 (3.5-5.1) mmol/L Chloride 108 H (98-107) mmol/L Carbon Dioxide 23 (22-30) mmol/L Anion Gap 6 mmol/L BUN 22 H (9-20) mg/dL Creatinine 0.89 (0.66-1.25) mg/dL Est GFR (CKD-EPI)AfAm >90 (>60 ml/min/1.73 sqM) Est GFR (CKD-EPI)NonAf >90 (>60 ml/min/1.73 sqM) Glucose 113 H (74-99) mg/dL Calcium 8.9 (8.4-10.2) mg/dL Magnesium 1.9 (1.6-2.3) mg/dL Total Bilirubin 0.5 (0.2-1.3) mg/dL AST 45 (17-59) U/L ALT 44 (4-49) U/L Alkaline Phosphatase 109 (38-126) U/L Troponin I (0.000-0.034) ng/mL Total Protein 7.7 (6.3-8.2) g/dL Albumin 4.2 (3.5-5.0) g/dL 02/16/22 Range/Units 11:08 WBC (3.8-10.6) k/uL RBC (4.30-5.90) m/uL Hgb (13.0-17.5) gm/dL Hct (39.0-53.0) % MCV (80.0-100.0) fL MCH (25.0-35.0) pg MCHC (31.0-37.0) g/dL RDW (11.5-15.5) % Plt Count (150-450) k/uL MPV Neutrophils % % Lymphocytes % % Monocytes % % Eosinophils % % Basophils % % Neutrophils # (1.3-7.7) k/uL Lymphocytes # (1.0-4.8) k/uL Monocytes # (0-1.0) k/uL Eosinophils # (0-0.7) k/uL Basophils # (0-0.2) k/uL PT (9.0-12.0) sec INR (<1.2) APTT (22.0-30.0) sec D-Dimer (<0.60) mg/L FEU Sodium (137-145) mmol/L Potassium (3.5-5.1) mmol/L Chloride (98-107) mmol/L Carbon Dioxide (22-30) mmol/L Anion Gap mmol/L BUN (9-20) mg/dL Creatinine (0.66-1.25) mg/dL Est GFR (CKD-EPI)AfAm (>60 ml/min/1.73 sqM) Est GFR (CKD-EPI)NonAf (>60 ml/min/1.73 sqM) Glucose (74-99) mg/dL Calcium (8.4-10.2) mg/dL Magnesium (1.6-2.3) mg/dL Total Bilirubin (0.2-1.3) mg/dL AST (17-59) U/L ALT (4-49) U/L Alkaline Phosphatase (38-126) U/L Troponin I <0.012 (0.000-0.034) ng/mL Total Protein (6.3-8.2) g/dL Albumin (3.5-5.0) g/dL - EKG Data -: EKG Interpreted by Mi EKG shows normal: sinus rhythm EKG Comments: Sinus bradycardia 51 146 QRS duration 94 daily since QTC 420/395 evidence of early repolarization no acute ST-T wave changes - Radiology Data Radiology results: report reviewed (Imaging reviewed no acute findings.), image reviewed Disposition Clinical Impression: Cough syncope syndrome Disposition: HOME SELF-CARE Condition: Good Instructions (If sedation given, give patient instructions): Syncope (ED) Is patient prescribed a controlled substance at d/c from ED?: No Referrals: Caty Waldrop MD [Primary Care Provider] - 1-2 days Decision Date: 02/16/22 Decision Time: 14:43
[2022-02-16] MEDS ORDERED: ACETAMINOPHEN TAB 500 MG TAB PO STA (11:31)
[2022-02-16 11:33] LABS: Basophils # (A) 0.1 k/uL (0-0.2); Basophils % (A) 1 %; Eosinophils # (A) 0.3 k/uL (0-0.7); Eosinophils % (A) 3 %; HCT 40.4 % (39.0-53.0); HGB 13.3 gm/dL (13.0-17.5); Lymphocytes # (A) 2.1 k/uL (1.0-4.8); Lymphocytes % (A) 25 %; MCH 32.3 pg (25.0-35.0); MCHC 32.9 g/dL (31.0-37.0); MCV 98.2 fL (80.0-100.0); Mean Platelet Volume 8.4; Monocytes # (A) 0.7 k/uL (0-1.0); Monocytes % (A) 8 %; Neutrophils # (A) 5.2 k/uL (1.3-7.7); Neutrophils % (A) 62 %; Platelet Count 169 k/uL (150-450); RBC 4.11 m/uL (4.30-5.90); RDW 12.7 % (11.5-15.5); WBC 8.5 k/uL (3.8-10.6)
[2022-02-16 11:47] LABS: ALT 44 U/L (4-49); AST 45 U/L (17-59); African American GFR (CKD) >90 (>60 ml/min/1.73 sqM); Albumin 4.2 g/dL (3.5-5.0); Alkaline Phosphatase 109 U/L (38-126); Anion Gap 6 mmol/L; Blood Urea Nitrogen 22 mg/dL (9-20); Calcium 8.9 mg/dL (8.4-10.2); Carbon Dioxide 23 mmol/L (22-30); Chloride 108 mmol/L (98-107); Glucose 113 mg/dL (74-99); Magnesium 1.9 mg/dL (1.6-2.3); Non-African American GFR(CKD) >90 (>60 ml/min/1.73 sqM); Potassium 4.6 mmol/L (3.5-5.1); Sodium 137 mmol/L (137-145); Total Bilirubin 0.5 mg/dL (0.2-1.3); Total Protein 7.7 g/dL (6.3-8.2)
[2022-02-16 11:48] LABS: INR 1.1 (<1.2); Partial Thromboplastin Time 24.8 sec (22.0-30.0); Prothrombin Time 11.3 sec (9.0-12.0)
--- NOTE | 2022-02-16 12:05 | XR ---
EXAMINATION TYPE: XR chest 2V DATE OF EXAM: 02/16/2022 COMPARISON: 12/23/2019 TECHNIQUE: PA and lateral views submitted. HISTORY: Cough FINDINGS: The lungs are clear and there is no pneumothorax, pleural effusion, or focal pneumonia. Heart size normal. Biapical pleural thickening. IMPRESSION: 1. No acute process.
--- NOTE | 2022-02-16 12:23 | CT ---
EXAMINATION TYPE: CT brain cspine wo con CT DLP: 1697.8 mGycm, Automated exposure control for dose reduction was used. DATE OF EXAM: 02/16/2022 12:12 PM COMPARISON: CT brain C-spine 07/06/2020. CLINICAL INDICATION:Male, 61 years old with history of syncope; Fall, syncopal episode TECHNIQUE: Brain: Multiple axial CT images of the brain were obtained without IV contrast. Cspine: Axial CT images from the skull base to the inferior aspect of T2 we obtained without intraven ous contrast. Coronal and sagittal reformatted images were also reviewed. FINDINGS: Brain: Extra-axial spaces: No abnormal extra-axial fluid collections. Ventricular system: Within normal limits Cerebral parenchyma: No acute intraparenchymal hemorrhage or mass effect. The fang-white junction is well differentiated. Scattered hypoattenuating areas are seen within the white matter. Cerebellum: Unremarkable. Mass effect: No evidence of midline shift. Intracranial vasculature: unremarkable Soft tissues: Normal. Calvarium/osseous structures: No depressed skull fracture. Paranasal sinuses and mastoid air cells: Clear. Visualized orbits: Orbital contents are intact. Cervical spine: Fracture: None. Osseous structures: Unremarkable Vertebral alignment: Within normal limits. Spinal canal/Neural Foramina: Moderate disc space narrowing and spurring C5-C6 level redemonstrated. No new large disc herniations. Posterior disc herniation C3-C4 and C6-C7 levels are seen better on pr ior MRI. Neck soft tissues: Prevertebral soft tissues are within normal limits. Other: The airway is patent. Hypoventilation changes within the visualized lungs. IMPRESSION: No acute intracranial process. No evidence of cervical spine fracture.
--- NOTE | 2022-02-16 14:14 | CT ---
EXAMINATION TYPE: CT angio chest CT DLP: 390.8 mGycm, Automated exposure control for dose reduction was used. DATE OF EXAM: 02/16/2022 2:01 PM COMPARISON: Chest radiograph 02/16/2022.. CLINICAL INDICATION:Male, 61 years old with history of PE suspected; Syncope, elevated d-dimer TECHNIQUE/CONTRAST: CTA scan of the thorax is performed with IV Contrast, patient injected with 100 mL of Isovue 370, pul monary embolism protocol. MIP images are created and reviewed. FINDINGS: Pulmonary Artery: There is no evidence for a filling defect within the pulmonary vasculature to sugge st acute pulmonary embolism. The pulmonary artery is of normal size. Lungs/Pleura: No evidence of focal consolidation, pleural effusion or pneumothorax. No suspicious pul monary nodules. Airway: Large airways are patent. Heart: Heart is within normal limits for size. No pericardial effusion. Vasculature: No evidence of aortic aneurysm. Mediastinum: No gross evidence of adenopathy. Musculoskeletal: No acute osseous abnormalities Soft Tissues: Bilateral gynecomastia. Lower neck: No significant findings. Upper Abdomen: Small hiatal hernia. IMPRESSION: No evidence of pulmonary embolism or acute thoracic process.
== END 2022-02-16 15:00 | disposition home or self-care (01) ==
LOC: EC 10:22
DX: R55 Syncope and collapse (principal); R05.9 Cough, unspecified; F17.200 Nicotine dependence, unspecified, uncomplicated; Z88.6 Allergy status to analgesic agent; W19.XXXA Unspecified fall, initial encounter
CPT/HCPCS: 36415; 93005; 85379; 80053; 83735; 84484; 85025; 85610; 85730; 71046; 72125; 70450; 71275; 99285; Q9967

== ENCOUNTER 2022-02-24 11:22 | Emergency (ER) | payer MEDICARE, OTHER ==
[2022-02-24 11:58] VITALS: BP 142/74; PULSE 54; RESP 18; TEMP 98.2
--- NOTE | 2022-02-24 12:45 | XR ---
EXAMINATION TYPE: XR chest 2V DATE OF EXAM: 02/24/2022 COMPARISON: Chest x-ray and CT dated 02/16/2022 HISTORY: Cough and syncope TECHNIQUE: Frontal and lateral views of the chest are obtained. FINDINGS: There is no interval change, no focal air space opacity, pleural effusion, or pneumothorax seen. The cardiac silhouette size is within normal limits. The osseous structures are intact. IMPRESSION: No acute cardiopulmonary process.
--- NOTE | 2022-02-24 13:47 | ED ---
URI HPI - General Chief Complaint: Upper Respiratory Infection Stated Complaint: cough, uri Time Seen by Provider: 02/24/22 12:15 Source: patient, RN notes reviewed Mode of arrival: ambulatory Limitations: no limitations - History of Present Illness Initial Comments: This a 61-year-old male presents emergency Department chief complaint of cough and cold like symptoms. Patient states sick last few days. Patient states he has to. Dry nonproductive cough. Patient does admit that he is a daily smoker. Patient does have history of drug abuse. Patient states that he's had no recent sick contacts patient states subjective fevers and chills. Denies any nausea vomiting diarrhea constipation no chest pain. Patient states he gets coughing so hard he feels that he cannot pass out and he felt that he almost passed out overnight. Patient denies any current complaints of that denies any headache blurred vision or any focal weakness. Patient had recent ER visit for a fall patient had full workup including CT negative labs. - Related Data Home Medications Medication Instructions Recorded Confirmed Cetirizine HCl [Zyrtec] 10 mg PO DAILY 02/16/22 02/16/22 Citalopram Hydrobromide [CeleXA] 30 mg PO HS 02/16/22 02/16/22 Gabapentin 600 mg PO HS 02/16/22 02/16/22 [place] Carbonate 300 mg PO BID 02/16/22 02/16/22 Omeprazole [PriLOSEC] 20 mg PO DAILY 02/16/22 02/16/22 QUEtiapine FUMARATE 300 mg PO BID 02/16/22 02/16/22 QUEtiapine [SEROquel] 100 mg PO DAILY 02/16/22 02/16/22 rOPINIRole HCL [Requip] 0.5 mg PO HS 02/16/22 02/16/22 Previous Rx's Medication Instructions Recorded Albuterol Sulfate [Proair Hfa] 1 - 2 puff INHALATION Q4HR PRN 02/24/22 #8.5 gm Azithromycin [Zithromax Z Pack] 0 tab PO DIRECTED #6 tab 02/24/22 predniSONE 50 mg PO DAILY #5 tab 02/24/22 Allergies Allergy/AdvReac Type Severity Reaction Status Date / Time ibuprofen [From Motrin] Allergy Nausea & Verified 07/06/20 12:21 Vomiting Review of Systems ROS Statement: Those systems with pertinent positive or pertinent negative responses have been documented in the HPI. ROS Other: All systems not noted in ROS Statement are negative. Past Medical History Past Medical History: Chest Pain / Angina, Musculoskeletal Disorder Additional Past Medical History / Comment(s): back pain History of Any Multi-Drug Resistant Organisms: MRSA Date of last positivie culture/infection: 2019 MDRO Source:: flank Past Surgical History: Orthopedic Surgery Additional Past Surgical History / Comment(s): L arm, right hand Past Anesthesia/Blood Transfusion Reactions: No Reported Reaction Past Psychological History: Depression Smoking Status: Current every day smoker Past Alcohol Use History: Abuse, Occasional Past Drug Use History: Cocaine General Exam Limitations: no limitations General appearance: alert, in no apparent distress Head exam: Present: atraumatic, normocephalic, normal inspection Eye exam: Present: normal appearance, PERRL, EOMI. Absent: scleral icterus, conjunctival injection, periorbital swelling ENT exam: Present: normal exam, normal oropharynx, mucous membranes moist Neck exam: Present: normal inspection, full ROM. Absent: tenderness, meningismus, lymphadenopathy Respiratory exam: Present: wheezes. Absent: normal lung sounds bilaterally, respiratory distress, rales, rhonchi, stridor Cardiovascular Exam: Present: regular rate, normal rhythm, normal heart sounds. Absent: systolic murmur, diastolic murmur, rubs, gallop, clicks GI/Abdominal exam: Present: soft, normal bowel sounds. Absent: distended, tenderness, guarding, rebound, rigid Course Vital Signs 02/24/22 02/24/22 11:53 13:19 Temperature 98.2 F Pulse Rate 54 L Respiratory 18 18 Rate Blood Pressure 142/74 O2 Sat by Pulse 100 Oximetry Medical Decision Making - Medical Decision Making 61-year-old male presented for cough and cold like symptoms. Chest x-rays unremarkable, patient is COVID-19 negative. Patient daily smoker patient to for acute bronchitis, recurrent COPD. Patient was given azithromycin and prednisone some pro-air inhaler. - Lab Data Lab Results 02/24/22 Range/Units 13:00 Coronavirus (PCR) Not Detected (Not Detectd) Disposition Clinical Impression: Bronchitis Disposition: HOME SELF-CARE Condition: Stable Instructions (If sedation given, give patient instructions): Upper Respiratory Infection (ED) Additional Instructions: Please return to the Emergency Department if symptoms worsen or any other concerns. Prescriptions: predniSONE 50 mg PO DAILY #5 tab Albuterol Sulfate [Proair Hfa] 1 - 2 puff INHALATION Q4HR PRN #8.5 gm PRN Reason: difficulty in breathing Azithromycin [Zithromax Z Pack] 0 tab PO DIRECTED #6 tab Is patient prescribed a controlled substance at d/c from ED?: No Referrals: Caty Waldrop MD [Primary Care Provider] - 1-2 days Time of Disposition: 13:46
== END 2022-02-24 14:14 | disposition home or self-care (01) ==
LOC: EC 11:22
DX: J20.9 Acute bronchitis, unspecified (principal); F17.200 Nicotine dependence, unspecified, uncomplicated; Z20.822 Contact with and (suspected) exposure to COVID-19; Z88.6 Allergy status to analgesic agent
CPT/HCPCS: 71046; 87635; 99283

== ENCOUNTER 2022-03-28 22:21 | Emergency (ER) | payer MEDICARE, OTHER ==
[2022-03-28 23:00] VITALS: BP 146/73; PULSE 67; RESP 18; TEMP 98
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
--- NOTE | 2022-03-29 06:49 | XR ---
EXAMINATION TYPE: XR knee complete LT DATE OF EXAM: 03/29/2022 CLINICAL HISTORY: Pain. TECHNIQUE: Three views of the left knee are obtained. COMPARISON: None. FINDINGS: There is no acute fracture/dislocation evident in left knee. Mild to moderate medial tibio femoral compartment narrowing. Minimal spurring patellofemoral compartment. There is broad-based oste ophytic projection from the posterior lateral aspect distal femoral cortex. Findings favor osteochond mikhail. If pain is localized to this level then other aggressive etiologies would need to be considered and follow-up would be advised beginning with orthopedic consultation to further evaluate. Overlying clothing or blanket material. IMPRESSION: There is no acute fracture or dislocation in the left knee.
--- NOTE | 2022-03-29 06:52 | XR ---
EXAMINATION TYPE: XR chest 2V DATE OF EXAM: 03/29/2022 COMPARISON: 02/24/2022 HISTORY: Cough TECHNIQUE: 2 views FINDINGS: Heart is normal. Lungs are clear of infiltrate. No heart failure. There are no hilar masses . The bony thorax is intact IMPRESSION: No active cardiopulmonary disease. No change.
== END 2022-03-29 08:32 | disposition home or self-care (01) ==
LOC: EC 22:21
DX: J44.9 Chronic obstructive pulmonary disease, unspecified (principal); M25.562 Pain in left knee; G89.29 Other chronic pain; F17.200 Nicotine dependence, unspecified, uncomplicated; Z88.6 Allergy status to analgesic agent
CPT/HCPCS: 71046; 99283

== ENCOUNTER 2022-04-25 06:57 | Day surgery (SDC) | payer MEDICARE ==
[~2022-04-25 06:57] MED LIST: SODIUM CHLORIDE 0.9% 1,000 ML IV SCH
[2022-04-25] MEDS ORDERED: SODIUM CHLORIDE 0.9% 500 ML 500 ML IV ONE (07:15)
[2022-04-25 07:38] VITALS: RESP 16; TEMP 98.3
[2022-04-25 10:08] VITALS: BP 119/69; PULSE 65
--- NOTE | 2022-05-20 10:32 | P.EPPROC ---
- EP Procedure Note Electrophysiology Procedure Note: Diagnosis Recurrent syncope Twelve-lead EKG shows sinus rhythm normal MA narrow QRS early repolarization abnormality inferolaterally Heart rate 48 beats a minute Tilt table test a protocol Baseline blood pressure 134/68 mmHg pulse rate 46 beats a minute He was tilted upright at an angle of 70 per protocol After 16 minutes there was a sudden drop in his blood pressure. The lowest blood pressure recorded was 68 mmHg Heart rates remained in the 50s to 70s Just prior to drop in blood pressure and symptoms heart rate increased to 70 beats a minute Following drop in blood pressure lowest heart rate recorded was 42 beats a minute He felt sick to his stomach and felt his he was going to pass out He is very sweaty He was laid supine in his blood pressure normalized Impression Vasodepressive response to upright tilting Sinus mechanism 48 beats a minute at rest asymptomatic with early repolarization abdomen inferolaterally
== END 2022-04-25 09:28 | disposition home or self-care (01) ==
LOC: CATHEP 06:57
PROVIDERS: ATTEND Internal Medicine Clinical Cardiac Electrophysiology
DX: R55 Syncope and collapse (principal); M54.2 Cervicalgia; M54.50 Low back pain, unspecified; M25.562 Pain in left knee
CPT/HCPCS: 93005; 93660

== ENCOUNTER 2022-04-25 12:22 | Emergency (ER) | payer MEDICARE ==
[2022-04-25 13:26] LABS: Basophils % (A) 1 %; Eosinophils # (A) 0.2 k/uL (0-0.7); Eosinophils % (A) 3 %; HCT 40.7 % (39.0-53.0); HGB 13.1 gm/dL (13.0-17.5); Lymphocytes % (A) 27 %; MCH 30.6 pg (25.0-35.0); MCHC 32.1 g/dL (31.0-37.0); MCV 95.2 fL (80.0-100.0); Mean Platelet Volume 9.1; Monocytes # (A) 0.5 k/uL (0-1.0); Monocytes % (A) 6 %; Neutrophils # (A) 4.5 k/uL (1.3-7.7); Neutrophils % (A) 61 %; Platelet Count 152 k/uL (150-450); RBC 4.27 m/uL (4.30-5.90); RDW 12.2 % (11.5-15.5); WBC 7.4 k/uL (3.8-10.6)
--- NOTE | 2022-04-25 13:46 | XR ---
EXAMINATION TYPE: XR chest 2V DATE OF EXAM: 04/25/2022 COMPARISON: 03/29/2022 TECHNIQUE: PA and lateral views submitted. HISTORY: Syncope FINDINGS: The lungs are clear and there is no pneumothorax, pleural effusion, or focal pneumonia. Heart size normal. Hypertrophic change of the spine. No overt failure. IMPRESSION: 1. No acute process.
[2022-04-25] MEDS ORDERED: methylPREDNISolone SOD SUCCI 125 MG/2 ML VIAL IV STA (14:25)
--- NOTE | 2022-04-25 14:28 | ED ---
URI HPI - General Chief Complaint: Upper Respiratory Infection Stated Complaint: Back pain Time Seen by Provider: 04/25/22 12:32 Source: patient, RN notes reviewed Mode of arrival: ambulatory Limitations: no limitations - History of Present Illness Initial Comments: 61-year-old male presents emergency Department chief complaint of cough congestion, right shoulder pain. Patient states that he's been sick last few days states she started having pain when he coughs or takes a deep breath his right shoulder blade. Denies any anterior chest pain. Patient states it feels like his rib is popping. Patient denies any trauma no rashes. Patient states cough is nonproductive, he states he is a daily smoker and his history of asthma. Patient denies any left-sided chest pain denies any prior cardiac issues. Patient offers no complaints. - Related Data Home Medications Medication Instructions Recorded Confirmed Gabapentin 600 mg PO HS 02/16/22 04/22/22 rOPINIRole HCL [Requip] 0.5 mg PO HS 02/16/22 04/25/22 Amoxicillin 500 mg PO TID 04/25/22 04/25/22 Cyclobenzaprine [Flexeril] 5 mg PO BID PRN 04/25/22 04/25/22 hydrOXYzine pamoate [hydrOXYzine 50 mg PO TID 04/25/22 04/25/22 PAMOATE] Previous Rx's Medication Instructions Recorded Albuterol Sulfate [Proair Hfa] 1 - 2 puff INHALATION Q4HR PRN 02/24/22 #8.5 gm predniSONE 50 mg PO DAILY #5 tab 02/24/22 Azithromycin [Zithromax Z Pack] 0 tab PO DIRECTED #6 tab 04/25/22 Benzonatate [Tessalon Perles] 100 mg PO TID PRN #15 capsule 04/25/22 predniSONE 50 mg PO DAILY #5 tab 04/25/22 Allergies Allergy/AdvReac Type Severity Reaction Status Date / Time ibuprofen [From Motrin] Allergy Nausea & Verified 04/25/22 12:27 Vomiting Review of Systems ROS Statement: Those systems with pertinent positive or pertinent negative responses have been documented in the HPI. ROS Other: All systems not noted in ROS Statement are negative. Past Medical History Past Medical History: Asthma, Musculoskeletal Disorder, Syncope Additional Past Medical History / Comment(s): back pain History of Any Multi-Drug Resistant Organisms: MRSA Date of last positivie culture/infection: 2019 MDRO Source:: flank Past Surgical History: Orthopedic Surgery Additional Past Surgical History / Comment(s): L arm, right hand SX Past Anesthesia/Blood Transfusion Reactions: No Reported Reaction Past Psychological History: Depression Smoking Status: Current every day smoker Past Alcohol Use History: None Reported, Abuse Past Drug Use History: None Reported - Past Family History Mother Family Medical History: Unable to Obtain General Exam Limitations: no limitations General appearance: alert, in no apparent distress Head exam: Present: atraumatic, normocephalic, normal inspection Eye exam: Present: normal appearance, PERRL, EOMI. Absent: scleral icterus, conjunctival injection, periorbital swelling ENT exam: Present: normal exam, mucous membranes moist Neck exam: Present: normal inspection. Absent: tenderness, meningismus, lymphadenopathy Respiratory exam: Present: wheezes, chest wall tenderness. Absent: normal lung sounds bilaterally, respiratory distress, rales, rhonchi, stridor Cardiovascular Exam: Present: regular rate, normal rhythm, normal heart sounds. Absent: systolic murmur, diastolic murmur, rubs, gallop, clicks GI/Abdominal exam: Present: soft, normal bowel sounds. Absent: distended, tenderness, guarding, rebound, rigid Course Vital Signs 04/25/22 12:24 Temperature 98 F Pulse Rate 74 Respiratory 16 Rate Blood Pressure 109/70 O2 Sat by Pulse 99 Oximetry Medical Decision Making - Medical Decision Making Chest x-rays unremarkable, negative d-dimer, negative troponin. EKG does not reveal any acute findings. Patient we treated for acute bronchitis, asthma. Return parameters were discussed. - Lab Data Result diagrams: 04/25/22 13:16 Lab Results 04/25/22 04/25/22 04/25/22 Range/Units 13:16 13:16 13:16 WBC 7.4 (3.8-10.6) k/uL RBC 4.27 L (4.30-5.90) m/uL Hgb 13.1 (13.0-17.5) gm/dL Hct 40.7 (39.0-53.0) % MCV 95.2 (80.0-100.0) fL MCH 30.6 (25.0-35.0) pg MCHC 32.1 (31.0-37.0) g/dL RDW 12.2 (11.5-15.5) % Plt Count 152 (150-450) k/uL MPV 9.1 Neutrophils % 61 % Lymphocytes % 27 % Monocytes % 6 % Eosinophils % 3 % Basophils % 1 % Neutrophils # 4.5 (1.3-7.7) k/uL Lymphocytes # 2.0 (1.0-4.8) k/uL Monocytes # 0.5 (0-1.0) k/uL Eosinophils # 0.2 (0-0.7) k/uL Basophils # 0.0 (0-0.2) k/uL D-Dimer 0.54 (<0.60) mg/L FEU Troponin I <0.012 (0.000-0.034) ng/mL Coronavirus (PCR) (Not Detectd) 04/25/22 Range/Units 13:16 WBC (3.8-10.6) k/uL RBC (4.30-5.90) m/uL Hgb (13.0-17.5) gm/dL Hct (39.0-53.0) % MCV (80.0-100.0) fL MCH (25.0-35.0) pg MCHC (31.0-37.0) g/dL RDW (11.5-15.5) % Plt Count (150-450) k/uL MPV Neutrophils % % Lymphocytes % % Monocytes % % Eosinophils % % Basophils % % Neutrophils # (1.3-7.7) k/uL Lymphocytes # (1.0-4.8) k/uL Monocytes # (0-1.0) k/uL Eosinophils # (0-0.7) k/uL Basophils # (0-0.2) k/uL D-Dimer (<0.60) mg/L FEU Troponin I (0.000-0.034) ng/mL Coronavirus (PCR) Not Detected (Not Detectd) Disposition Clinical Impression: COPD (chronic obstructive pulmonary disease), Bronchitis Disposition: HOME SELF-CARE Condition: Stable Instructions (If sedation given, give patient instructions): Upper Respiratory Infection (ED) Additional Instructions: Please return to the Emergency Department if symptoms worsen or any other concerns. Prescriptions: predniSONE 50 mg PO DAILY #5 tab Benzonatate [Tessalon Perles] 100 mg PO TID PRN #15 capsule PRN Reason: Cough Azithromycin [Zithromax Z Pack] 0 tab PO DIRECTED #6 tab Is patient prescribed a controlled substance at d/c from ED?: No Referrals: Caty Waldrop MD [Primary Care Provider] - 1-2 days Time of Disposition: 14:28
[2022-04-25 15:23] VITALS: BP 121/84; PULSE 50; RESP 18; TEMP 97.8
== END 2022-04-25 15:35 | disposition home or self-care (01) ==
LOC: EC 12:22
DX: J44.9 Chronic obstructive pulmonary disease, unspecified (principal); F32.A Depression, unspecified; F17.200 Nicotine dependence, unspecified, uncomplicated; Z88.6 Allergy status to analgesic agent; Z79.811 Long term (current) use of aromatase inhibitors; Z79.51 Long term (current) use of inhaled steroids; Z20.822 Contact with and (suspected) exposure to COVID-19
CPT/HCPCS: 99284; 96374; 36415; 93005; 85379; 84484; 85025; 87635; 71046; J2930

== ENCOUNTER → 2022-10-26 | Outpatient (CLI) | payer MEDICARE ==
--- NOTE | 2022-10-26 11:29 | FL ---
EXAMINATION TYPE: FL barium swallow DATE OF EXAM: 10/26/2022 CLINICAL HISTORY: Dysphasia. Food getting stuck on and off including solids and liquids for one year. History of reflux on medication. TECHNIQUE: A double contrast esophagram is performed utilizing air and barium. A total of 21 second s of fluoroscopic time was utilized during procedure and 40 images obtained COMPARISON: None FINDINGS: The esophagus shows satisfactory motility and emptying into the stomach. No proximal divert iculum. No evidence of fixed hiatal hernia or stricture noted. No significant gastroesophageal reflux was seen during real time performance of this study. There is asymmetric nonfilling of the left piri form sinus. IMPRESSION: Asymmetric nonfilling of the left piriform sinus raises concern for mucosal mass at this level. Consider contrast-enhanced neck CT and/or ENT referral to further evaluate. TOTAL DAP DOSE: 479.30 Gycm2
--- NOTE | 2022-10-26 11:30 | US ---
EXAMINATION TYPE: US thyroid st tissue head/neck DATE OF EXAM: 10/26/2022 COMPARISON: CT cervical spine February 16, 2022 CLINICAL HISTORY: R13.12 DYSPHAGIA, OROPHARYNGEAL PHASE. Difficulty swallowing GLAND SIZE: Right Lobe: 3.8 x 1.5 x 1.5 cm Overall Parenchyma: homogenous Left Lobe: 4.2 x 1.4 x 1.4 cm Overall Parenchyma: homogeneous Isthmus Thickness: 0.3 cm NODULES RIGHT: # of nodules measured on right: 0 LEFT: # of nodules measured on left: 0 ISTHMUS: # of nodules measured in the isthmus: 0 Bilateral neck scanned, no evidence of lymphadenopathy. Homogeneous normal-sized thyroid without discrete nodule. IMPRESSION: As above. Unremarkable study.
== END | disposition home or self-care (01) ==
LOC: RADUSWWP 08:45
PROVIDERS: ATTEND Family Medicine
DX: R13.12 Dysphagia, oropharyngeal phase (principal)
CPT/HCPCS: 74220; 76536

== ENCOUNTER → 2022-10-31 | Outpatient (CLI) | payer MEDICARE, OTHER ==
--- NOTE | 2022-10-31 20:58 | CT ---
EXAMINATION TYPE: CT soft tissue neck w con DATE OF EXAM: 10/31/2022 COMPARISON: None HISTORY: DYSPHAGIA CT DLP: 600.2 mGycm CONTRAST: Patient injected with 60 mL of Isovue 300. TECHNIQUE: Axial images at 3 mm thick sections. Reconstructed images in the coronal plane and sagitt al plane are reviewed. FINDINGS: Limited CT sections are obtained the lung apices. The lung apices appear clear. CT neck: The torus tubarius and fossa of Rosenmuller are normal. Hem Marker spaces are normal. Para nasal sinuses and mastoid air cells are clear. Parotid glands appear normal and symmetrical. Submandibular glands, are normal. Parapharyngeal spac es are normal. No suspicious adenopathy is evident. Couple of small lymph nodes are in the submental space. There are scattered small lymph nodes within the submandibular region on the left. There is irregularity within the hypopharynx. There may be some thickening and irregularity along the posterior tongue better visualized on the sagittal plane images. Direct visualization is recommended . Vocal cord level appear symmetrical. Thyroid as visualized is normal. Degenerative disc changes present C5-6. Mild disc changes within the cervical spine. The prevertebral space appears normal. IMPRESSIONS: 1. Irregularity along the posterior tongue and through the hypopharynx. Direct visualization recommen ded. Neoplasm should be considered.
== END | disposition home or self-care (01) ==
LOC: RADCTMAIN 07:17
PROVIDERS: ATTEND Family Medicine
DX: R13.12 Dysphagia, oropharyngeal phase (principal); R93.3 Abnormal findings on diagnostic imaging of other parts of digestive tract
CPT/HCPCS: 70491; Q9967

== ENCOUNTER 2022-12-30 13:48 | Day surgery (SDC) | payer MEDICARE, OTHER ==
[2022-12-28 11:13] VITALS: BMI 30.8
[~2022-12-30 13:48] MED LIST changes: +LACTATED RINGERS 1,000 ML IV SCH; +LIDOCAINE 1% (10MG/ML) FOR IV START INTRADERMA PRN; -SODIUM CHLORIDE 0.9% 1,000 ML IV SCH
[2022-12-30 14:27] VITALS: RESP 16; TEMP 97
[2022-12-30] MEDS ORDERED: LIDOCAINE 2% INJ 20 MG/ML (2 ML VIAL) ONE (15:25)
[2022-12-30] MEDS ORDERED: GLYCOPYRROLATE 0.2 MG/ML 2 ML VIAL ONE (15:25)
[2022-12-30] MEDS ORDERED: PROPOFOL 10 MG/ML 20 ML VIAL IV ONE (15:25)
--- NOTE | 2022-12-30 15:38 | P.PCN ---
Date of Procedure: 12/30/22 Procedure(s) Performed: BRIEF HISTORY: Patient is a 62-year-old, pleasant, intermittent male scheduled for an upper endoscopy as a part of evaluation of intermittent dysphagia to solids for the last few months duration.. He had barium esophagogram done that showed asymmetric nonfilling defect at the left pyriform sinus but no esophageal lesions noted. He scheduled for an upper endoscopy to evaluate further. PROCEDURE PERFORMED: Esophagogastroduodenoscopy. PREOPERATIVE DIAGNOSIS: Intermittent dysphagia to solids. IV sedation per anesthesia. PROCEDURE: After informed consent was obtained, the patient was brought into the endoscopy unit. IV sedation was administered by Anesthesia under continuous monitoring. Initially the Olympus GIF-140 video endoscope was inserted into the mouth. Esophagus intubated without any difficulty. It was gradually advanced into the stomach and duodenum and carefully examined. The bulb and the second part of the duodenum appeared normal. The scope at this time was withdrawn to the stomach, adequately insufflated with air, and upon careful examination, mucosa of the antrum, body, cardia and the fundus appeared normal. The scope was then withdrawn into the esophagus. The GE junction was located at 39 cm from the incisors. The esophagus appeared normal. There were 2 superficial erosions at the GE junction consistent with LA grade B reflux esophagitis. The proximal cervical esophagus was carefully examined and appeared normal. The pyriform sinuses appeared normal. No abnormal mucosal lesions identified and the patient tolerated the procedure well. IMPRESSION: 1. 2 superficial erosions at the GE junction consistent with LA grade a reflux esophagitis. 2. No abnormalities noted in the proximal cervical esophagus or by the pyriform sinuses. RECOMMENDATIONS: The findings of this examination were discussed with the patient as well as his family. He was advised to continue with Prilosec 20 mg daily and follow antireflux measures. Follow with the ENT is scheduled.
[2022-12-30 16:05] VITALS: BP 106/74; PULSE 61
== END 2022-12-30 16:23 | disposition home or self-care (01) ==
LOC: ORWHC2ENDO 13:48
PROVIDERS: ATTEND Internal Medicine Gastroenterology
DX: K21.9 Gastro-esophageal reflux disease without esophagitis (principal); J45.909 Unspecified asthma, uncomplicated; F17.210 Nicotine dependence, cigarettes, uncomplicated; Z88.8 Allergy status to other drugs, medicaments and biological substances; Z79.899 Other long term (current) drug therapy
CPT/HCPCS: 43235; J2704; J2001

== ENCOUNTER → 2023-10-06 | Outpatient (CLI) | payer MEDICARE ==
--- NOTE | 2023-10-06 14:08 | CTL ---
EXAMINATION TYPE: CT Low Dose Lung DATE OF EXAM ORDERED: 10/06/2023 HISTORY: . Lung cancer screening CT DLP: 137.[address] CTDI: 3.6 mGy Automated exposure control for dose reduction was used. COMPARISON: 02/16/2022. TECHNIQUE: Low dose computed tomography scan was performed through the chest at 1 mm thick sections a nd reconstructed images in multiple planes at 1 mm and [address] DIAGNOSTIC QUALITY: Satisfactory FINDINGS: LUNG NODULES: There is a calcified granuloma in the right upper lobe. There are no significant solid pulmonary nodules. Please note that significant motion limits evaluation of the lung parenchyma.. LUNGS: COPD: Severity: Mild emphysema. Fibrosis: Severity: None Lymph nodes: No adenopathy. Other findings: RIGHT PLEURAL SPACE: Effusion: None Calcification: None Thickening: None Pneumothorax: None LEFT PLEURAL SPACE: Effusion: None Calcification: None Thickening: None Pneumothorax: None HEART: Heart Size: Normal Coronary Calcification: None Pericardial Effusion: None OTHER FINDINGS: Upper abdomen: None Bony thorax: None Supraclavicular region: None Other: None IMPRESSION: 1. Negative lung cancer screening examination for significant pulmonary nodules. 2. Mild smoking-related change. CT LUNG RAD AND CT CHEST RECOMMENDATION: Lung-Rad 1 Negative: Continue annual screening with LDCT in 12 months.
== END | disposition home or self-care (01) ==
LOC: RADCTMAIN 13:35
PROVIDERS: ATTEND Family Medicine
DX: Z12.2 Encounter for screening for malignant neoplasm of respiratory organs (principal); F17.210 Nicotine dependence, cigarettes, uncomplicated; J43.9 Emphysema, unspecified
CPT/HCPCS: 71271

== ENCOUNTER → 2024-10-24 | Outpatient (CLI) | payer MEDICARE, OTHER ==
[2024-10-25 02:10] LABS: Basophils # (A) 0.04 X 10*3/uL (0.00-0.10); Basophils % (A) 0.5 %; Eosinophils # (A) 0.06 X 10*3/uL (0.04-0.35); Eosinophils % (A) 0.7 %; HGB 14.8 g/dL (13.0-17.0); Lymphocytes # (A) 2.87 X 10*3/uL (0.90-5.00); Lymphocytes % (A) 34.4 %; MCH 30.8 pg (27.0-32.0); MCHC 32.2 g/dL (32.0-37.0); MCV 95.8 FL (80.0-97.0); Mean Platelet Volume 11.4 FL (9.5-12.2); Monocytes # (A) 0.88 X 10*3/uL (0.20-1.00); Monocytes % (A) 10.6 %; NRBC Per 100 WBC 0 X 10*3/uL (0.00-0.01); Neutrophils # (A) 4.45 X 10*3/uL (1.80-7.70); Neutrophils % (A) 53.3 %; Platelet Count 181 X 10*3/uL (140-440); WBC 8.34 X 10*3/uL (4.50-10.00)
== END | disposition home or self-care (01) ==
LOC: LABWHC1 16:07
PROVIDERS: ATTEND Family Medicine
DX: Z01.812 Encounter for preprocedural laboratory examination (principal); K40.90 Unilateral inguinal hernia, without obstruction or gangrene, not specified as recurrent
CPT/HCPCS: 85025; 86850; 86900; 86901

== ENCOUNTER → 2024-10-25 | Outpatient (CLI) | payer MEDICARE, OTHER | END | disposition home or self-care (01) | LOC: LABPAT 11:29 | PROVIDERS: ATTEND Surgery | DX: Z01.818 Encounter for other preprocedural examination (principal); K40.90 Unilateral inguinal hernia, without obstruction or gangrene, not specified as recurrent; R00.1 Bradycardia, unspecified | CPT/HCPCS: 93005 ==

== ENCOUNTER 2024-10-30 07:23 | Day surgery (SDC) | payer MEDICARE, OTHER ==
[~2024-10-30 07:23] MED LIST changes: +HYDROmorphone 0.5 MG/0.5 ML SYRINGE IVP PRN; -LACTATED RINGERS 1,000 ML IV SCH; +droPERidol 2.5 MG/ML VIAL IVP ONE
[2024-10-30] MEDS: LACTATED RINGERS 1,000 ML IV ONE (08:45)
[2024-10-30] MEDS: ACETAMINOPHEN TAB 500 MG TAB PO PRN (08:46)
[2024-10-30] MEDS: DEXAMETHASONE SOD PHOSPHATE 4 MG/ML 1 ML VIAL IVP ONE (08:47)
[2024-10-30] MEDS: ONDANSETRON 4 MG/2 ML VIAL IVP ONE ×2 (08:47→09:36)
[2024-10-30] MEDS: MIDAZOLAM 2 MG/2 ML VIAL IV ONE (09:32)
--- NOTE | 2024-10-30 09:32 | P.ANPRN ---
Procedure Note - Anesthesia - Nerve Block Performed Bilateral Erector Spinae Single Time Out Performed: Yes Date of Procedure: 10/30/24 Procedure Start Time: :16 Procedure Stop Time: : Location of Patient: PreOp Indication: Acute Post-Operative Pain, Analgesia, Requested by Surgeon Sedation Type: Sedate with meaningful contact maintained Preparation: Sterile Prep Position: Prone Catheter: None Needle Types: Pajunk Needle Gauge: 21 Ultrasound used to visualize needle placement: Yes Ultrasound used to observe medication spread: Yes Injectate: 0.5% Ropivacaine (see comment for volume) (Ropiv 20ml+[id number], Needle level L1--- Each side.) Resistance on Injection: Normal Image Stored and Saved: Yes Events: Uneventful and Well Tolerated
[2024-10-30] MEDS: fentaNYL (PF) 50 MCG/ML 2 ML AMP IVP PRN (09:33)
[2024-10-30] MEDS: LACTATED RINGERS 1,000 ML IV SCH (09:33)
[2024-10-30] MEDS: HEPARIN SODIUM,PORCINE 5,000 UNIT/ML 1 ML VIAL SQ PRN (09:34)
[2024-10-30] MEDS: DEXAMETHASONE SOD PHOSPHATE 4 MG/ML 1 ML VIAL IV ONE (09:36)
[2024-10-30] MEDS ORDERED: MIDAZOLAM 2 MG/2 ML VIAL ONE (09:46)
[2024-10-30] MEDS ORDERED: PROPOFOL 10 MG/ML 20 ML VIAL IV ONE (09:46)
[2024-10-30] MEDS ORDERED: NEOSTIGMINE 1 MG/ML 10 ML VIAL ONE (09:46)
[2024-10-30] MEDS ORDERED: ROPIVACAINE 5 MG/ML 30 ML VIAL ONE (09:46)
[2024-10-30] MEDS ORDERED: KETAMINE HCL IN 0.9 % NACL 50 MG/5 ML SYRINGE ONE (09:46)
[2024-10-30] MEDS ORDERED: LIDOCAINE 1% INJ 10MG/ML (20 ML MDV) ONE (09:46)
[2024-10-30] MEDS ORDERED: GLYCOPYRROLATE 0.2 MG/ML 2 ML VIAL ONE (09:46)
[2024-10-30] MEDS ORDERED: ROCURONIUM 10 MG/ML (5 ML VIAL) IV ONE (09:46)
[2024-10-30] MEDS ORDERED: fentaNYL (PF) 50 MCG/ML 2 ML AMP ONE (09:46)
[2024-10-30] MEDS ORDERED: SUCCINYLCHOLINE CHLORIDE 200 MG/10 ML VIAL IV ONE (09:46)
[2024-10-30] MEDS ORDERED: DEXAMETHASONE SOD PHOSPHATE 4 MG/ML 1 ML VIAL ONE (09:46)
[2024-10-30] MEDS: ceFAZolin 2 GM in DEXTROSE 5% IN WATER 50 ML IVPB PRN (09:49)
[2024-10-30] MEDS: LIDOCAINE 1%-EPI 1:100,000 20 ML VIAL SQ ONE ×2 (09:53→10:04)
[2024-10-30 10:55] VITALS: TEMP 97.1
[2024-10-30 12:21] VITALS: BP 149/77; PULSE 73; RESP 20
--- NOTE | 2024-10-30 14:04 | P.OP ---
Date of Procedure: 10/30/24 Preoperative Diagnosis: Right inguinal hernia Postoperative Diagnosis: Right inguinal hernia Procedure(s) Performed: Laparoscopic robot-assisted pair of radial hernia Excision of cord lipoma Transversus abdominis plane block Anesthesia: BO Surgeon: Ambrosio Benites Estimated Blood Loss (ml): 5 Pathology: other (Cord lipoma) Condition: stable Disposition: PACU Description of Procedure: The patient's placed on the operating table in the supine position. The patient received general anesthesia. The patient's abdomen was prepped and draped in usual sterile fashion. The skin was anesthetized 1% local Xylocaine at the incision sites. Using an 11 blade a skin incision was made at the umbilicus. The fascia was grasped with a [place] and then the peritoneal cavity was entered with the Veress needle. Position of the Veress needle was confirmed with a positive drop test. After adequate insufflation a 5 mm trocar was placed into the peritoneal cavity. The Laparoscope was placed the peritoneal cavity. And a robotic 8 mm trocar was placed in the right lateral position and then another 8 mm robotic trochars placed in the left lateral position. The original 5 mm trocar was exchanged for a 8 mm trocar. A four quadrant transversus abdominal bloc was performed with 1% local xylocaine. The patient was placed in reverse Trendelenburg and then the patient was docked to the robot. Next the peritoneum over top of the hernia was incised and then using blunt and sharp dissection and electrocautery the hernia sac was dissected free from the floor of the inguinal canal. Cord lipoma was dissected free sent to pathology The hernia sac was completely reduced into the peritoneal cavity. The cord lipoma was diseected free and sent to pathology And then using the Pro enrichment director mesh the hernia was repaired. The peritoneum was then sutured with 20V lock suture. The patient was then undocked the robot. The needle was withdrawn from the peritoneal cavity. The umbilical trocar site was closed with 0 Ethibond suture. The skin was closed interrupted 3-0 Monocryl suture. Dermabond dressing was applied. Patient was sent to recovery in stable condition.
== END 2024-10-30 12:20 | disposition home or self-care (01) ==
LOC: OR 07:23
PROVIDERS: ATTEND Surgery
DX: K40.90 Unilateral inguinal hernia, without obstruction or gangrene, not specified as recurrent (principal); G89.18 Other acute postprocedural pain; D17.6 Benign lipomatous neoplasm of spermatic cord; J45.909 Unspecified asthma, uncomplicated; M19.90 Unspecified osteoarthritis, unspecified site; F32.A Depression, unspecified; F17.210 Nicotine dependence, cigarettes, uncomplicated; Z79.1 Long term (current) use of non-steroidal anti-inflammatories (NSAID); Z79.899 Other long term (current) drug therapy; Z79.51 Long term (current) use of inhaled steroids; Z88.6 Allergy status to analgesic agent
CPT/HCPCS: 49650; 64468; 88304; C1781; J2250; J0330; J1644; J1100; J2710; J0690; J2405; J2003; J3010; J2795; J2704; J1596

== ENCOUNTER 2024-11-02 17:38 | Emergency (ER) | payer MEDICARE, OTHER ==
[2024-11-02 18:01] VITALS: TEMP 98.5
--- NOTE | 2024-11-02 18:22 | ED ---
General Adult HPI - General Chief complaint: Chest Pain Stated complaint: chest pain Time Seen by Provider: 11/02/24 18:02 Source: patient Mode of arrival: ambulatory Limitations: no limitations - History of Present Illness Initial comments: Dictation was produced using [employer] dictation software. please excuse any grammatical, word or spelling errors. Chief Complaint: 63-year-old male presents emergency department with chest pain History of Present Illness: Patient 63-year-old male states that he has history of tobacco use and dyslipidemia. Patient states that he has sharp chest pain starting today. Nonradiating associate diaphoresis and nausea. States that he does have family history of heart attacks. Denies any shortness of breath. The ROS documented in this emergency department record has been reviewed and confirmed by me. Those systems with pertinent positive or negative responses have been documented in the HPI. All other systems are other negative and/or noncontributory. - Related Data Home Medications Medication Instructions Recorded Confirmed Omeprazole 20 mg PO DAILY 12/30/22 11/02/24 Gabapentin [Neurontin] 400 mg PO BID 10/28/24 11/02/24 HYDROcodone/APAP 10-325MG [[place] 1 tab PO QID PRN 10/28/24 11/02/24 10-325] Aspirin EC [Ecotrin Low Dose] 81 mg PO ONCE PRN 11/02/24 11/02/24 Famotidine [Pepcid] 20 mg PO HS 11/02/24 11/02/24 Previous Rx's Medication Instructions Recorded Docusate [Colace] 100 mg PO BID #20 capsule 10/30/24 Ibuprofen [Motrin] 600 mg PO Q6HR PRN #40 tab 10/30/24 oxyCODONE HCL [OxyIR] 5 mg PO Q6H PRN 3 Days #10 tab 10/30/24 Allergies Allergy/AdvReac Type Severity Reaction Status Date / Time ibuprofen [From Motrin] Allergy Nausea & Verified 11/02/24 18:35 Vomiting Review of Systems ROS Statement: Those systems with pertinent positive or pertinent negative responses have been documented in the HPI. ROS Other: All systems not noted in ROS Statement are negative. Past Medical History Past Medical History: Asthma, GERD/Reflux, Musculoskeletal Disorder, Osteoarthritis (OA), Syncope Additional Past Medical History / Comment(s): occasional coughing when lying down related to GERD, used to be more frequent & severe-years ago coughed so hard passed out briefly, asthma as a child-no current inhaler use, herniated discs, left knee pain History of Any Multi-Drug Resistant Organisms: MRSA Date of last positivie culture/infection: 2019 MDRO Source:: LT FLANK Past Surgical History: Orthopedic Surgery Additional Past Surgical History / Comment(s): L arm, right hand SX, EGD, colonoscopy Past Anesthesia/Blood Transfusion Reactions: No Reported Reaction Past Psychological History: Depression Smoking Status: Current every day smoker - Past Family History Mother Family Medical History: Unable to Obtain General Exam - General Exam Comments Initial Comments: PHYSICAL EXAM: General Impression: Alert and oriented x3, not in acute distress HEENT: Normocephalic atraumatic, extra-ocular movements intact, pupils equal and reactive to light bilaterally, mucous membranes moist. Cardiovascular: Heart regular rate and rhythm Chest: Able to complete full sentences, no retractions, no tachypnea Abdomen: abdomen soft, non-tender, non-distended, no organomegaly Musculoskeletal: Pulses present and equal in all extremities, no peripheral edema Motor: no focal deficits noted Neurological: CN II-XII grossly intact, no focal motor or sensory deficits noted Skin: Intact with no visualized rashes Psych: Normal affect and mood Limitations: no limitations Course Vital Signs 11/02/24 11/02/24 11/02/24 17:58 18:54 19:21 Temperature 98.5 F Pulse Rate 51 L 45 L 43 L Respiratory 18 16 16 Rate Blood Pressure 128/69 148/80 O2 Sat by Pulse 97 100 100 Oximetry EKG Findings - EKG Comments: EKG Findings:: My EKG interpretation: Ventricular rate 47, sinus bradycardia,. 144, QRS 94, QTc 372. No OK prolongation, no QTC prolongation, no ST or T-wave changes noted. Overall, this EKG is unremarkable Medical Decision Making - Medical Decision Making Was pt. sent in by a medical professional or institution (, PA, DRILLING FIELD SPECIALIST, urgent care, hospital, or correction...) When possible be specific @ -No Did you speak to anyone other than the patient for history (EMS, parent, family, police, friend...)? What history was obtained from this source @ -No Did you review nursing and triage notes (agree or disagree)? Why? @ -I reviewed and agree with nursing and triage notes Were old charts reviewed (outside hosp., previous admission, EMS record, old EKG, old radiological studies, urgent care reports/EKG's, correction records)? Report findings @ -No old charts were reviewed Differential Diagnosis (chest pain, altered mental status, abdominal pain women, abdominal pain men, vaginal bleeding, musculoskeletal, weakness, fever, dyspnea, syncope, headache, dizziness, GI bleed, back pain, seizure, CVA, palpatations, mental health)? @ -Differential Chest Pain: Stable Angina, Unstable Angina, STEMI, NSTEMI Aortic Dissection, Pneumothorax, Musculoskeletal, Esophageal Spasm GERD, Cholecystitis, Pancreatitis, Zoster, this is not meant to be an all-inclusive list. EKG interpreted by me (3pts min.). @ -See above X-rays interpreted by me (1pt min.). @ -Chest x-ray shows no acute processes CT interpreted by me (1pt min.). @ -None done U/S interpreted by me (1pt. min.). @ -None done What testing was considered but not performed or refused? (CT, X-rays, U/S, labs)? Why? @ -None What meds were considered but not given or refused? Why? @ -None Was smoking cessation discussed for >3mins.? @ -No Were there social determinants of health that impacted care today? How? (Ho melessness, low income, unemployed, alcoholism, drug addiction, transportation, low edu. Level, literacy, decrease access to med. care, intermediate, rehab)? @ -No Was there de-escalation of care discussed even if they declined (Discuss DNR or withdrawal of care, Hospice)? DNR status @ -No What co-morbidities impacted this encounter? (DM, HTN, Smoking, COPD, CAD, Cancer, CVA, ARF, Chemo, Hep., AIDS, mental health diagnosis, sleep apnea, morbid obesity)? @ -None Was patient admitted / discharged? Hospital course, mention meds given and route, prescriptions, significant lab abnormalities, going to OR and other pertinent info. @ -63-year-old male presents with atypical chest pain typical features. Vital signs are stable. He does have some risk factors. Vital signs upon arrival are within acceptable limits. EKG shows sinus bradycardia with no signs of ischemia infarction. Laboratory evaluation obtained. Initial troponin is negative. Recommended patient observation admission. He would prefer to have a second troponin and be discharged if negative. Patient care signed out to Dr. Carlton Mcdonnell at 5:00 PM. Patient given aspirin Did you discuss the management of the patient with other professionals (professionals i.e. , PA, DRILLING FIELD SPECIALIST, lab, RT, psych nurse, social work manager, dental secretary, teacher, protective services officer, case finisher)? Give summary @ -No Was critical care preformed (if so, how long)? @ -No Undiagnosed new problem with uncertain prognosis? @ -No Drug Therapy requiring intensive monitoring for toxicity (Heparin, Nitro, Insulin, Cardizem)? @ -No Were any procedures done? @ -No Diagnosis/symptom? Acute, or Chronic, or Acute on Chronic? Uncomplicated (without systemic symptoms) or Complicated (systemic symptoms)? @ -Chest pain Side effects of treatment? @ -No Exacerbation, Progression, or Severe Exacerbation? @ -No Poses a threat to life or bodily function? How? (Chest pain, [place], CA, pneumonia, PE, COPD, DKA, ARF, appy, cholecystitis, CVA, Diverticulitis, Homicidal, Suicid al, threat to staff... and all critical care pts) @ -yes - Lab Data Result diagrams: 11/02/24 18:30 11/02/24 18:30 Lab Results 11/02/24 11/02/24 11/02/24 Range/Units 18:30 18:30 18:30 WBC 8.17 (4.50-10.00) 10*3/uL RBC 4.51 (4.40-5.60) 10*6/uL Hgb 14.3 (13.0-17.0) g/dL Hct 41.6 (39.6-50.0) % MCV 92.2 (80.0-97.0) fL MCH 31.7 (27.0-32.0) pg MCHC 34.4 (32.0-37.0) g/dL Plt Count 164 (140-440) 10*3/uL MPV 11.0 (9.5-12.2) fL Immature Gran % (Auto) 0.7 % Neutrophils % 55.2 % Lymphocytes % 32.4 % Monocytes % 10.0 % Eosinophils % 1.1 % Basophils % 0.6 % Immature Gran # 0.06 H (0.00-0.04) 10*3/uL Neutrophils # 4.50 (1.80-7.70) 10*3/uL Lymphocytes # 2.65 (0.90-5.00) 10*3/uL Monocytes # 0.82 (0.20-1.00) 10*3/uL Eosinophils # 0.09 (0.04-0.35) 10*3/uL Basophils # 0.05 (0.00-0.10) 10*3/uL PT 11.8 (10.0-12.5) sec INR 1.1 (<1.2) APTT 25.1 (22.0-30.0) sec Sodium 138 (137-145) mmol/L Potassium 5.1 (3.5-5.1) mmol/L Chloride 102 (98-107) mmol/L Carbon Dioxide 32 H (22-30) mmol/L Anion Gap 4 mmol/L BUN 11 (9-20) mg/dL Creatinine 0.87 (0.66-1.25) mg/dL Est GFR (CKD-EPI)AfAm >90 (>60 ml/min/1.73 sqM) Est GFR (CKD-EPI)NonAf >90 (>60 ml/min/1.73 sqM) Glucose 110 H (74-99) mg/dL Calcium 9.4 (8.4-10.2) mg/dL Magnesium 1.8 (1.6-2.3) mg/dL Total Bilirubin 0.7 (0.2-1.3) mg/dL AST 36 (17-59) U/L ALT 23 (4-49) U/L Alkaline Phosphatase 81 (38-126) U/L Troponin I (0.000-0.034) ng/mL Total Protein 7.1 (6.3-8.2) g/dL Albumin 4.0 (3.5-5.0) g/dL 11/02/24 Range/Units 18:30 WBC (4.50-10.00) 10*3/uL RBC (4.40-5.60) 10*6/uL Hgb (13.0-17.0) g/dL Hct (39.6-50.0) % MCV (80.0-97.0) fL MCH (27.0-32.0) pg MCHC (32.0-37.0) g/dL Plt Count (140-440) 10*3/uL MPV (9.5-12.2) fL Immature Gran % (Auto) % Neutrophils % % Lymphocytes % % Monocytes % % Eosinophils % % Basophils % % Immature Gran # (0.00-0.04) 10*3/uL Neutrophils # (1.80-7.70) 10*3/uL Lymphocytes # (0.90-5.00) 10*3/uL Monocytes # (0.20-1.00) 10*3/uL Eosinophils # (0.04-0.35) 10*3/uL Basophils # (0.00-0.10) 10*3/uL PT (10.0-12.5) sec INR (<1.2) APTT (22.0-30.0) sec Sodium (137-145) mmol/L Potassium (3.5-5.1) mmol/L Chloride (98-107) mmol/L Carbon Dioxide (22-30) mmol/L Anion Gap mmol/L BUN (9-20) mg/dL Creatinine (0.66-1.25) mg/dL Est GFR (CKD-EPI)AfAm (>60 ml/min/1.73 sqM) Est GFR (CKD-EPI)NonAf (>60 ml/min/1.73 sqM) Glucose (74-99) mg/dL Calcium (8.4-10.2) mg/dL Magnesium (1.6-2.3) mg/dL Total Bilirubin (0.2-1.3) mg/dL AST (17-59) U/L ALT (4-49) U/L Alkaline Phosphatase (38-126) U/L Troponin I <0.012 (0.000-0.034) ng/mL Total Protein (6.3-8.2) g/dL Albumin (3.5-5.0) g/dL Disposition Clinical Impression: Chest pain Instructions (If sedation given, give patient instructions): Chest Pain (ED) Is patient prescribed a controlled substance at d/c from ED?: No Referrals: Matias Dixon MD [Medical Doctor] - 1-2 days Time of Disposition: 19:46
[2024-11-02 18:36] LABS: Basophils # (A) 0.05 10*3/uL (0.00-0.10); Basophils % (A) 0.6 %; Eosinophils # (A) 0.09 10*3/uL (0.04-0.35); Eosinophils % (A) 1.1 %; HCT 41.6 % (39.6-50.0); HGB 14.3 g/dL (13.0-17.0); Lymphocytes # (A) 2.65 10*3/uL (0.90-5.00); Lymphocytes % (A) 32.4 %; MCH 31.7 pg (27.0-32.0); MCHC 34.4 g/dL (32.0-37.0); MCV 92.2 fL (80.0-97.0); Monocytes # (A) 0.82 10*3/uL (0.20-1.00); Neutrophils % (A) 55.2 %; Platelet Count 164 10*3/uL (140-440); RBC 4.51 10*6/uL (4.40-5.60); RDW 11.5 % (11.5-14.5); WBC 8.17 10*3/uL (4.50-10.00)
--- NOTE | 2024-11-02 18:41 | XR ---
EXAMINATION TYPE: XR chest 2V DATE OF EXAM: 11/02/2024 6:35 PM COMPARISON: 04/25/2022 CLINICAL INDICATION: Male, 63 years old with history of Chest Pain, TECHNIQUE: XR chest 2V view(s) obtained. FINDINGS: The heart size is normal. The pulmonary vasculature is normal. The lungs are clear. IMPRESSION: 1. No acute pulmonary process. [facility], , 11/02/2024 6:39 PM
[2024-11-02 18:49] LABS: ALT 23 U/L (4-49); African American GFR (CKD) >90 (>60 ml/min/1.73 sqM); Anion Gap 4 mmol/L; Blood Urea Nitrogen 11 mg/dL (9-20); Calcium 9.4 mg/dL (8.4-10.2); Carbon Dioxide 32 mmol/L (22-30); Chloride 102 mmol/L (98-107); Glucose 110 mg/dL (74-99); INR 1.1 (<1.2); Non-African American GFR(CKD) >90 (>60 ml/min/1.73 sqM); Partial Thromboplastin Time 25.1 sec (22.0-30.0); Prothrombin Time 11.8 sec (10.0-12.5); Sodium 138 mmol/L (137-145); Total Bilirubin 0.7 mg/dL (0.2-1.3)
[2024-11-02 18:58] VITALS: BP 148/80; RESP 16
[2024-11-02 19:12] LABS: Potassium 5.1 mmol/L (3.5-5.1)
[2024-11-02 19:13] LABS: AST 36 U/L (17-59); Alkaline Phosphatase 81 U/L (38-126); Magnesium 1.8 mg/dL (1.6-2.3); Total Protein 7.1 g/dL (6.3-8.2)
[2024-11-02] MEDS: ASPIRIN 81 MG PO STA (19:23)
[2024-11-02 19:24] VITALS: PULSE 43
== END 2024-11-02 21:57 ==
LOC: EC 17:38
DX: R07.89 Other chest pain (principal); R00.1 Bradycardia, unspecified; F17.200 Nicotine dependence, unspecified, uncomplicated; Z88.6 Allergy status to analgesic agent
CPT/HCPCS: 36415; 71046; 80053; 83735; 84484; 85025; 85610; 85730; 93005; 99285

== ENCOUNTER → 2025-02-19 | Outpatient (CLI) | payer MEDICARE, OTHER ==
--- NOTE | 2025-02-19 13:34 | US ---
EXAMINATION TYPE: US groin RT DATE OF EXAM: 02/19/2025 COMPARISON: (08/28/2024) CLINICAL INDICATION: Male, 64 years old with history of M12.9 ARTHRITIS SITE UNSPEC R59.0 LYMPHADENOP ATHY; known rt lymph nodes, rt hernia repair 10/30/2024 TECHNIQUE: Rt Groin scanned. Valsalva maneuver was performed. FINDINGS: Benign lymph nodes with central fatty hilum: 1. 1.4x2.5x1.0cm thickness: 0.2cm 2. 0.8x0.9x0.4cm thickness: 0.1cm No other findings seen. Postsurgical changes from right inguinal hernia repair without evidence for r ecurrent hernia. No fluid collection identified. IMPRESSION: 1. Benign right groin lymph nodes. 2. Postsurgical changes from right inguinal hernia repair without evidence for recurrent hernia. [facility], , 02/19/2025 1:32 PM
== END | disposition home or self-care (01) ==
LOC: RADUSWWP 13:04
PROVIDERS: ATTEND Internal Medicine Hematology & Oncology
DX: R59.0 Localized enlarged lymph nodes (principal); M12.9 Arthropathy, unspecified; Z98.890 Other specified postprocedural states